=== PATIENT | female | born 1980 | race Caucasian/White ===

== ENCOUNTER 2020-02-21 20:34 | Inpatient (IN) | payer BC ==
[2020-02-21 21:23] LABS: #Lymphocytes 1.5 thou/uL (1.20-3.40); #Monocytes 0.3 thou/uL (0.11-0.59); #Neutrophils 4.7 thou/uL (1.40-6.50); %Basophils 0.5 % (0.0-1.0); %Eosinophils 0.4 % (0.0-10.0); %Lymphocytes 22.2 % (21.0-51.0); %Monocytes 5.2 % (0.0-10.0); %Neutrophils 71.6 % (42.0-75.0); Hemoglobin 14.5 g/dL (12.0-16.0); Mean Corpuscular HGB CONC 34.4 g/dL (32.0-36.0); Mean Corpuscular Hemoglobin 32.2 pg (27.0-31.0); Mean Corpuscular Volume 93.5 fL (78.0-98.0); Platelet Count 166 thou/uL (130-400); Red Blood Cell (RBC) Count 4.49 mill/uL (4.20-5.40); White Blood Cell (WBC) Count 6.6 thou/uL (4.8-10.8)
[2020-02-21] MEDS ORDERED: Lorazepam 1 MG TAB ONE (21:28)
--- NOTE | 2020-02-21 21:36 | RAD ---
Portable frontal chest radiograph: 02/21/2020 COMPARISON: 02/15/2020 HISTORY: Syncope, chest pain FINDINGS: Stable pulmonary hyperinflation. No pneumothorax or pleural fluid. No focal consolidation o r alveolar edema. Impression: No significant interval change.
[2020-02-21 21:53] LABS: ALT (SGPT) 9 U/L (8-55); AST (SGOT) 10 U/L (5-34); Alkaline Phosphatase 74 U/L (40-110); Anion Gap 16 mmol/L (10-20); BUN (Urea Nitrogen) 13 mg/dL (7.0-18.7); Bilirubin, Total 0.4 mg/dL (0.2-1.2); Calc. Creatinine Clearance 0 mL/min (70-130); Carbon Dioxide 20 mmol/L (22-29); Chloride 106 mmol/L (98-107); Estimated GFR-MDRD 81; Globulin 2.7 g/dL (2.4-3.5); Glucose 94 mg/dL (70-105); Magnesium 2.1 mg/dL (1.6-2.6); Potassium 3.8 mmol/L (3.5-5.1); Protein, Total 6.7 g/dL (6.0-8.3); Sodium 138 mmol/L (136-145)
[2020-02-21] MEDS ORDERED: Calcium Carbonate 500 MG ChewTAB PO PRN (23:43)
[2020-02-21] MEDS ORDERED: Ondansetron ODT 4 MG TAB PO PRN (23:43)
[2020-02-21] MEDS ORDERED: Acetaminophen 650 MG Suppository PR PRN (23:43)
[2020-02-21] MEDS ORDERED: HYDROcodone/Acetaminophen 5/325 mg Tablet PO PRN (23:43)
[2020-02-21] MEDS ORDERED: Acetaminophen 325 MG TAB PO PRN (23:43)
--- NOTE | 2020-02-21 23:53 | PDOC.HHP ---
Hospitalist HPI - History of Present Illness syncope History of Present Illness: Case of an 39y/o female with pmhx of hashimotos disease and celiac disease who comes to hospital due to episodes of syncope. patient states that since two weeks ago she has had recurrent episodes of palpitations with a HR of between 120-160s with associated syncope. she states that when she wakes up she has chest pain and tingling sensation on her arms. Refers recently her assistant hairstylist discontinued her levothyroxine due to these episodes of syncope and tachycardia. patient also complains of recent dysuria and generalize weakness. Hospitalist ROS - Review of Systems All other systems reviewed; all pertinent +/- noted in HPI/Subj Hospitalist History - Past Surgical History Past Surgical History: reports: no pertinent history - Family History Family History: reports: no pertinent history - Social History Smoking Status: Current every day smoker Alcohol: reports: None Drugs: reports: none - Exam General Appearance: NAD, awake alert General - other findings: frail appearing Eye: PERRL, anicteric sclera ENT: normocephalic atraumatic, no oropharyngeal lesions, moist mucosa Neck: supple, symmetric, no JVD, no thyromegaly Heart: RRR, no murmur, no gallops, no rubs Respiratory: CTAB, no wheezes, no rales, no ronchi Gastrointestinal: soft, non-tender, non-distended, normal bowel sounds Extremities: no cyanosis, no clubbing, no edema Skin: normal turgor, no lesions, no rashes Neurological: cranial nerve grossly intact, normal sensation to touch, no weakness Musculoskeletal: normal tone, normal strength, no muscle wasting Psychiatric: normal affect, normal behavior, A&O x 3 Hospitalist Results - Labs Result Diagrams: 02/21/20 21:13 02/21/20 21:13 Lab results: WBC 6.6 thou/uL (4.8-10.8) 02/21/20 21:13 Hgb 14.5 g/dL (12.0-16.0) 02/21/20 21:13 Hct 42.0 % (36.0-47.0) 02/21/20 21:13 MCV 93.5 fL (78.0-98.0) 02/21/20 21:13 Plt Count 166 thou/uL (130-400) 02/21/20 21:13 Neutrophils % 71.6 % (42.0-75.0) 02/21/20 21:13 Sodium 138 mmol/L (136-145) 02/21/20 21:13 Potassium 3.8 mmol/L (3.5-5.1) 02/21/20 21:13 Chloride 106 mmol/L (98-107) 02/21/20 21:13 Carbon Dioxide 20 mmol/L (22-29) L 02/21/20 21:13 BUN 13 mg/dL (7.0-18.7) 02/21/20 21:13 Creatinine 0.79 mg/dL (0.6-1.1) 02/21/20 21:13 Glucose 94 mg/dL (70-105) 02/21/20 21:13 Calcium 9.0 mg/dL (7.8-10.44) 02/21/20 21:13 Total Bilirubin 0.4 mg/dL (0.2-1.2) 02/21/20 21:13 AST 10 U/L (5-34) 02/21/20 21:13 ALT 9 U/L (8-55) 02/21/20 21:13 Alkaline Phosphatase 74 U/L (40-110) 02/21/20 21:13 Troponin I Less than 0.010 ng/mL (< 0.028) 02/21/20 21:13 B-Natriuretic Peptide Less than 10.0 pg/mL (0-100) 02/21/20 21:13 Serum Total Protein 6.7 g/dL (6.0-8.3) 02/21/20 21:13 Albumin 4.0 g/dL (3.5-5.0) 02/21/20 21:13 Hospitalist H&P A/P - Problem (1) Syncope Code(s): R55 - SYNCOPE AND COLLAPSE Status: Acute (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 THYROIDITIS Status: Acute (3) Smoker Code(s): F17.200 - NICOTINE DEPENDENCE, UNSPECIFIED, UNCOMPLICATED Status: Acute (4) Celiac disease Code(s): K90.0 - CELIAC DISEASE Status: Acute - Plan Plan: Case of an 39y/o female with the stated pmhx who presents wit an episodes of syncope syncope - ekg sinus tachycardia un 107 - initial troponin negative will trend - cardiac monitoring - tsh normal will check free t3+t4 - telemetry monitoring - cxr with hyperinflammation but normal appearing heart - will get 2d echo - normal 02 sats, adequate hg, normal bnp - r/o infection with u/a, cxr clean hashimotos - check free t3 + t4 smoker - advied to quit
[2020-02-22 02:02] LABS: Troponin I Less than 0.010 ng/mL (< 0.028)
[2020-02-22 05:10] LABS: Albumin 3.5 g/dL (3.5-5.0); Anion Gap 13 mmol/L (10-20); BUN (Urea Nitrogen) 13 mg/dL (7.0-18.7); Bilirubin, Total 0.7 mg/dL (0.2-1.2); Calc. Creatinine Clearance 101 mL/min (70-130); Calcium 8.4 mg/dL (7.8-10.44); Carbon Dioxide 21 mmol/L (22-29); Chloride 108 mmol/L (98-107); Estimated GFR-MDRD Greater than 90; Glucose 88 mg/dL (70-105); Potassium 3.4 mmol/L (3.5-5.1); Protein, Total 5.8 g/dL (6.0-8.3); Sodium 139 mmol/L (136-145)
[2020-02-22 05:11] LABS: ALT (SGPT) Less than 7 U/L (8-55); AST (SGOT) 10 U/L (5-34); Alkaline Phosphatase 66 U/L (40-110); Globulin 2.3 g/dL (2.4-3.5); Magnesium 1.9 mg/dL (1.6-2.6)
[2020-02-22 05:14] LABS: Troponin I 0.018 ng/mL (< 0.028)
[2020-02-22 06:41] LABS: Free T4 (Free Thyroxine) 1.07 ng/dL (0.70-1.48)
[2020-02-22] MEDS: Enoxaparin Sodium 40 MG/0.4 ML SYRINGE SC SCH (09:06)
[2020-02-22 09:11] LABS: SARS-CoV-2 MS2 Positive; SARS-CoV-2 N Gene Negative; SARS-CoV-2 S Gene Negative; SARS-CoV-2 by NAA Not Detected (NotDetected); SARS-CoV-2 orf1ab Negative
[2020-02-22 09:54] LABS: Bacteria/HPF None Seen HPF (None Seen); Bilirubin Negative (Negative); Blood, Urine Negative (Negative); Clarity Clear (Clear); Glucose, Urine (Dipstick) Normal (Negative); Ketone, Urine 10 mg/dL (Negative); Leukocyte 25 Leu/uL (Negative); Nitrite Negative (Negative); Protein, Urine (Dipstick) Negative (Neg-Trace); RBC/HPF 0-3 HPF (0-3); Specific Gravity, Urine 1.021 (1.002-1.036); Squamous Epithelial 0-3 HPF (0-3); Urobilinogen Normal mg/dL (Less than 2); pH, Urine 5.5 (5.0-9.0)
[2020-02-22 09:55] LABS: Urine Culture Reflex Yes Yes
[2020-02-22] MEDS ORDERED: Electrolyte Replacement Protoc 1 EACH EACH FS SCH (10:15)
[2020-02-22] MEDS ORDERED: Magnesium 2 GM/50 ML 2 GM in Premix Bag 1 BAG IVPB SCH (10:30)
[2020-02-22] MEDS ORDERED: Potassium Chloride 20 MEQ TAB PO SCH (10:30)
[2020-02-22] MEDS: Ondansetron PF 4 MG/2 ML Vial IVP PRN (12:10)
[2020-02-22] MEDS ORDERED: Cosyntropin 250 MCG VIAL SLOW IVP SCH (12:45)
--- NOTE | 2020-02-22 14:09 | MRI ---
MRI OF THE BRAIN WITHOUT CONTRAST: 02/22/20 INDICATIONS: Headache, syncope. No comparison. Motion artifact degrade the sequences. FINDINGS: The ventricles have normal size and position. No evidence of restricted diffusion. No evidence of mas s or edema. No evidence of white matter abnormality. No evidence of hemorrhage. Intracranial internal carotid arteries, cerebral arteries and dural venous sinuses show flow voids. T he paranasal sinuses and mastoids are clear. Orbits unremarkable. Pituitary appears normal. IMPRESSION: Unremarkable MRI of the brain. POS: AH
[2020-02-22] MEDS: Dextrose 5 % And 0.9 % NaCl 1,000 ML IV SCH (16:52)
[2020-02-22] MEDS ORDERED: diphenhydrAMINE 50 MG/ML VIAL ONE (17:02)
--- NOTE | 2020-02-22 17:16 | CON ---
NEUROLOGY CONSULTATION DATE OF CONSULTATION: 02/22/2020 REASON FOR CONSULTATION: Syncope. HISTORY OF PRESENT ILLNESS: Ms. Alvares is a 39-year-old female with history significant for Jo Ann's disease and celiac disease, who presented to the hospital with persistent episodes of dizziness with associated syncope. The episode started 2 weeks ago. She woke up in the morning and has palpitations with her heart rate between 120 to 160s and she feels extremely dizzy and feeling of passing out. She also complained of generalized weakness and chest pain. The patient denies any focal numbness, focal paresthesias, double vision, blurred vision, loss of vision, or any seizure-like activity associated with the episode. REVIEW OF SYSTEMS: All systems reviewed and were negative except the pertinent positives and negatives mentioned in HPI. PAST SURGICAL HISTORY: No significant past surgical history. FAMILY HISTORY: No significant family history. SOCIAL HISTORY: The patient denies smoking, alcohol, or illegal drug use. ALLERGIES: Iodine, Iodine containing products and cephalexin PHYSICAL EXAMINATION: VITAL SIGNS: Blood pressure 127/66, temperature 98.7, pulse 89. General Appearance: NAD, awake alert Eye: PERRL, anicteric sclera ENT: normocephalic atraumatic, no oropharyngeal lesions, moist mucosa Neck: supple, symmetric, no JVD, no thyromegaly Heart: RRR, no murmur, no gallops, no rubs Respiratory: CTAB, no wheezes, no rales, no ronchi Gastrointestinal: soft, non-tender, non-distended, normal bowel sounds Extremities: no cyanosis, no clubbing, no edema Skin: normal turgor, no lesions, no rashes Neurological: Mental status; the patient is alert and oriented to person, place, and time. Recent and remote memory, clear. Speech is clear. Motor; muscle tone and bulk are normal. Strength 5/5 bilaterally. Sensory intact. Cerebellar, finger-nose testing intact. Cranial nerves 2 through 12 intact. Gait deferred due to the patient's safety reason. DATA REVIEWED: I reviewed the labs, which were essentially unremarkable. MRI of the brain did not reveal acute intracranial pathology. WBC 6.6 thou/uL (4.8-10.8) 02/21/20 21:13 Hgb 14.5 g/dL (12.0-16.0) 02/21/20 21:13 Hct 42.0 % (36.0-47.0) 02/21/20 21:13 MCV 93.5 fL (78.0-98.0) 02/21/20 21:13 Plt Count 166 thou/uL (130-400) 02/21/20 21:13 Neutrophils % 71.6 % (42.0-75.0) 02/21/20 21:13 Sodium 138 mmol/L (136-145) 02/21/20 21:13 Potassium 3.8 mmol/L (3.5-5.1) 02/21/20 21:13 Chloride 106 mmol/L (98-107) 02/21/20 21:13 Carbon Dioxide 20 mmol/L (22-29) L 02/21/20 21:13 BUN 13 mg/dL (7.0-18.7) 02/21/20 21:13 Creatinine 0.79 mg/dL (0.6-1.1) 02/21/20 21:13 Glucose 94 mg/dL (70-105) 02/21/20 21:13 Calcium 9.0 mg/dL (7.8-10.44) 02/21/20 21:13 Total Bilirubin 0.4 mg/dL (0.2-1.2) 02/21/20 21:13 AST 10 U/L (5-34) 02/21/20 21:13 ALT 9 U/L (8-55) 02/21/20 21:13 Alkaline Phosphatase 74 U/L (40-110) 02/21/20 21:13 Troponin I Less than 0.010 ng/mL (< 0.028) 02/21/20 21:13 B-Natriuretic Peptide Less than 10.0 pg/mL (0-100) 02/21/20 21:13 Serum Total Protein 6.7 g/dL (6.0-8.3) 02/21/20 21:13 Albumin 4.0 g/dL (3.5-5.0) 02/21/20 21:13 ASSESSMENT AND PLAN: (1) Syncope Code(s): R55 - SYNCOPE AND COLLAPSE Status: Acute (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 Giorgio Tena is a 39-year-old female who presented with an episode of palpitation, dizziness, and episodes of syncope. This is on and off since the last 2 weeks. MRI of the brain reviewed, which was negative for acute intracranial pathology. The patient cannot have intravenous dye because of history of anaphylaxis. Consider carotid Dopplers to rule out hemodynamically significant stenosis. 2D echo reviewed, which showed normal ejection fraction with no thrombus or PFO. Continue telemetry and Cardiology input regarding syncope. Consider ultrasound of the thyroid since the patient complained of pressure in the neck. Neuro checks every 4 hours. Continue medical management per primary team per primary team. Continue pain control. PT/OT. We will continue to follow. Thank you for the consult. Job ID: [id number] MTDD
[2020-02-22] MEDS ORDERED: hydrOXYzine 25 MG TAB PO PRN (18:04)
--- NOTE | 2020-02-22 18:05 | PDOC.HOSPP ---
- Subjective Encounter Date: 02/22/20 Subjective: Was seen and examined in bed. She was generally cheerful and distress. She complained of intermittent headaches and palpitations with syncope is anytime she tries to get up. She was admitted overnight - Objective Vital Signs & Weight: Vital Signs (12 hours) Temp Pulse Resp BP Pulse Ox 02/22/20 12:00 98.7 F 89 17 121/66 96 02/22/20 08:00 98.3 F 94 17 110/61 99 Weight Weight 128 lb 14.4 oz I&O: 02/21/20 02/22/20 02/23/20 06:59 06:59 06:59 Intake Total 240 Balance 240 Result Diagrams: 02/21/20 21:13 02/22/20 04:21 Additional Labs: Accuchecks 02/22/20 02/22/20 02/22/20 17:00 14:33 12:21 POC Glucose 89 76 72 Hospitalist ROS - Medication Medications: Active Medications Generic Name Dose Route Start Last Admin Trade Name Freq PRN Reason Stop Dose Admin Cosyntropin 250 mcg 02/22/20 12:45 02/22/20 16:51 Cosyntropin 250 Mcg Vial SLOW IVP 250 mcg WILLCALL RADU Administration Enoxaparin Sodium 40 mg 02/22/20 09:00 02/22/20 09:06 Enoxaparin Sodium 40 Mg/0.4 Ml Syringe SC 40 mg 0900 RADU Administration Dextrose/Sodium Chloride 1,000 mls @ 75 mls/hr 02/22/20 16:30 02/22/20 16:52 D5 0.9% Ns IV 1,000 mls .[id number] RADU Administration Ondansetron HCl 4 mg 02/21/20 23:43 02/22/20 12:10 Ondansetron Pf 4 Mg/2 Ml Vial IVP 4 mg Q6H PRN Administration Nausea/Vomiting - Exam General Appearance: awake alert General - other findings: Generally anxious. Neck: supple, no JVD, no thyromegaly, no lymphadenopathy, no carotid bruit Heart: RRR, no murmur, no gallops, no rubs Respiratory: CTAB, no wheezes, no rales, no ronchi Gastrointestinal: soft, non-tender, non-distended, normal bowel sounds Extremities: no cyanosis, no clubbing, no edema Neurological: cranial nerve grossly intact, no focal deficits Psychiatric: normal affect, A&O x 3 Hosp A/P - Plan This is a 39-year-old female patient with a history of autoimmune thyroiditis and celiac disease presents with recurrent syncopal events intermittent palpitations and headaches for the past couple of weeks. Recurrent syncopal events. Unclear etiology at this point. Possibilities include intracerebral lesion, carotid disease cardiac and endocrinopathy and cardiac Initial MRI of the brain shows no acute or chronic events. echocardiogram noncontributory so far, no concerning EKG changes, orthostatics negative. Unable to do CTA due to allergy, we will do Doppler ultrasound of the carotids Adrenal assessmentattempted cosyntropin stimulation test resulted in extreme discomfort and tachycardia and test was discontinued. We will check cortisol in a.m., plasma metanephrines ordered. Renal ultrasound scan for assessment of adrenals Monitor on telemetry Neurology consulted Intermittent headaches Has history of migraines however described recent headaches as different in character. MRI brain negative so far Phenothiazine assessment Neurology consulted Neck tightness Given history of Jo Ann's thyroiditis we will do a Doppler ultrasound scan Thyroid function is within normal limits at the moment Anxiety. She is on as needed Atarax at home We will continue VT prophylaxisLovenox CODE STATUSfull code
--- NOTE | 2020-02-22 18:19 | PDOC.BPN ---
- Brief Progress Note Encounter Date: 02/22/20 Patient had a brief periof of tachycardia headaches and feeling of unwellness after initial injection of cosyntropin for cosyntropin stimulation test. Injection was discontinued NARCISA reddy was called. Patient was given Benadryl which eventually calmed her down. EKG shows sinus tachycardiastat labs were collected We will continue close monitoring on telemetry.
[2020-02-22 20:29] LABS: Medtox Reader # READER 4
[2020-02-22 20:30] LABS: Amphetamine Not Detected (NotDetected); Barbiturates Screen Not Detected (NotDetected); Benzodiazepine Screen Detected (NotDetected); Cocaine Metabolite Screen Not Detected (NotDetected); Medtox Control Line Valid? VALID (VALID); Methadone Not Detected (NotDetected); Methamphetamine Not Detected (NotDetected); Opiate Screen Not Detected (NotDetected); Oxycodone Screen Not Detected (NotDetected); Phencyclidine (PCP) Not Detected (NotDetected); THC/Cannabinoid Screen Not Detected (NotDetected); Tricyclic Screen Not Detected (NotDetected)
[2020-02-22] MEDS ORDERED: Temazepam 15 MG CAP PO PRN (22:53)
--- NOTE | 2020-02-22 23:33 | ULT ---
Thyroid ultrasound: 02/22/2020 COMPARISON: None HISTORY: Autoimmune thyroiditis, neck tightness TECHNIQUE: Multiplanar grayscale sonographic imaging of the thyroid gland obtained FINDINGS: The isthmus measures 2 mm in AP dimension. The left lobe measures 1.4 x 4.3 x 1.2 cm in the right lobe measures 1.5 x 4.5 x 1.3 cm. There is a tiny nodule in the lateral left lobe measuring 1-2 mm. There is a tiny hypoechoic nodule w ithin the mid right lobe measuring 4 x 3 mm. IMPRESSION: Grossly unremarkable thyroid ultrasound. No significant thyroid nodule.
--- NOTE | 2020-02-22 23:36 | ULT ---
Carotid arterial Doppler ultrasound: 02/22/2020 COMPARISON: None HISTORY: Severe headaches with syncope TECHNIQUE: Multiplanar grayscale sonographic imaging of the arterial structures of the neck obtained with Doppler interrogation including color flow and spectral analysis FINDINGS: Antegrade blood flow and normal arterial waveforms are documented within the carotid and ve rtebral system bilaterally. Peak systolic velocity (centimeters per second) is as follows: Right CCA 110 Right ICA 109 Right ECA 90 Left CCA 140 Left ICA 84 Left ECA 92 The ICA/CCA ratio is 1.0 on the right and 0.6 on the left IMPRESSION: Mildly elevated velocity within the left common carotid artery correlating with a moderat e degree of stenosis (50-69%). Velocity range for this degree of stenosis is 125-230 cm/s.
[2020-02-23] MEDS: Dextrose 5 % And 0.9 % NaCl 1,000 ML IV SCH ×2 (06:03→19:33)
[2020-02-23] MEDS: Enoxaparin Sodium 40 MG/0.4 ML SYRINGE SC SCH (07:51)
[2020-02-23] MEDS ORDERED: ALPRAZolam 0.5 MG TAB PO SCH (10:15)
--- NOTE | 2020-02-23 13:26 | PDOC.HOSPP ---
- Subjective Encounter Date: 02/23/20 Encounter Time: 10:25 Subjective: c/o fear of tachycardia and passing out if she tries to get up has loss of appetite family at bedside appears very anxious and tearfull, at the same time wants answers to her issues and why its taking so long to find out? - Objective Vital Signs & Weight: Vital Signs (12 hours) Temp Pulse Resp BP Pulse Ox 02/23/20 11:16 98.9 F 72 12 107/68 100 02/23/20 07:45 98.2 F 74 16 115/62 99 02/23/20 04:00 97.9 F 99 16 119/73 99 Weight Weight 128 lb 14.4 oz I&O: 02/22/20 02/23/20 02/24/20 06:59 06:59 06:59 Intake Total 240 1580 Output Total 450 Balance 240 1130 Result Diagrams: 02/21/20 21:13 02/22/20 04:21 Additional Labs: Accuchecks 02/23/20 02/23/20 02/23/20 12:07 10:18 08:09 POC Glucose 101 H 92 78 02/23/20 02/23/20 02/23/20 05:40 01:41 00:01 POC Glucose 105 H 105 H 109 H 02/22/20 02/22/20 02/22/20 22:20 20:02 17:00 POC Glucose 115 H 95 89 02/22/20 14:33 POC Glucose 76 Hospitalist ROS - Medication Medications: Active Medications Generic Name Dose Route Start Last Admin Trade Name Freq PRN Reason Stop Dose Admin Enoxaparin Sodium 40 mg 02/22/20 09:00 02/23/20 07:51 Enoxaparin Sodium 40 Mg/0.4 Ml Syringe SC 40 mg 0900 RADU Administration Hydroxyzine HCl 50 mg 02/22/20 18:04 02/22/20 20:30 Hydroxyzine 25 Mg Tab PO 50 mg Q8H PRN Administration Anxiety Dextrose/Sodium Chloride 1,000 mls @ 75 mls/hr 02/22/20 16:30 02/23/20 06:03 D5 0.9% Ns IV 1,000 mls .[id number] RADU Administration Ondansetron HCl 4 mg 02/21/20 23:43 02/22/20 12:10 Ondansetron Pf 4 Mg/2 Ml Vial IVP 4 mg Q6H PRN Administration Nausea/Vomiting Sodium Chloride 10 ml 02/22/20 21:00 02/23/20 07:50 Flush - Normal Saline 10 Ml Syringe IVF 10 ml Q12HR RADU Administration Temazepam 15 mg 02/22/20 22:53 02/23/20 01:01 Temazepam 15 Mg Cap PO 15 mg HSPRN PRN Administration Insomnia - Exam General Appearance: awake alert Eye: PERRL, anicteric sclera ENT: no oropharyngeal lesions, moist mucosa Neck: supple, no JVD Heart: RRR, no murmur Respiratory: no wheezes, no rales Gastrointestinal: soft, non-tender, non-distended, normal bowel sounds Extremities: no cyanosis, no edema Neurological: cranial nerve grossly intact, no focal deficits Psychiatric: A&O x 3 Psychiatric - other findings: very anxious Hosp A/P (1) Narrow complex tachycardia Code(s): I47.1 - SUPRAVENTRICULAR TACHYCARDIA Status: Suspected (2) Syncope Code(s): R55 - SYNCOPE AND COLLAPSE Status: Suspected (3) Tobacco use Code(s): Z72.0 - TOBACCO USE Status: Chronic (4) Celiac disease Code(s): K90.0 - CELIAC DISEASE Status: Chronic (5) Jo Ann's thyroiditis Code(s): E06.3 - AUTOIMMUNE THYROIDITIS Status: Chronic (6) Dehydration Code(s): E86.0 - DEHYDRATION Status: Acute (7) Anxiety disorder Code(s): F41.9 - ANXIETY DISORDER, UNSPECIFIED Status: Suspected Qualifiers: Anxiety disorder type: generalized anxiety disorder Qualified Code(s): F41.1 - Generalized anxiety disorder - Plan thyroid function tests are normal has normal resting heart rate on tele d/w echo is normal iv hydration, encourage po intake PT eval to help her overcome fear of passing out/tachy etc gluten free diet
--- NOTE | 2020-02-23 13:43 | PDOC.NEUPN ---
- Subjective Encounter Date: 02/23/20 Subjective: She still complains of tachycardia on movement and not feeling well this morning. - Objective Vital Signs & Weight: Vital Signs (12 hours) Temp Pulse Resp BP Pulse Ox 02/23/20 11:16 98.9 F 72 12 107/68 100 02/23/20 07:45 98.2 F 74 16 115/62 99 02/23/20 04:00 97.9 F 99 16 119/73 99 Weight Weight 128 lb 14.4 oz I&O: 02/22/20 02/23/20 02/24/20 06:59 06:59 06:59 Intake Total 240 1580 Output Total 450 Balance 240 1130 Result Diagrams: 02/21/20 21:13 02/22/20 04:21 Additional Labs: Accuchecks 02/23/20 02/23/20 02/23/20 12:07 10:18 08:09 POC Glucose 101 H 92 78 02/23/20 02/23/20 02/23/20 05:40 01:41 00:01 POC Glucose 105 H 105 H 109 H 02/22/20 02/22/20 02/22/20 22:20 20:02 17:00 POC Glucose 115 H 95 89 02/22/20 14:33 POC Glucose 76 Radiology Reviewed by me: Yes EKG Reviewed by me: Yes ROS - Review of Systems Constitutional: denies: fever, chills, sweats, weakness, malaise, other Eyes: denies: pain, vision change, conjunctivae inflammation, eyelid inflammation, redness, other ENT: denies: ear pain, ear discharge, nose pain, nose discharge, nose congestion, mouth pain, mouth swelling, throat pain, throat swelling, other Respiratory: denies: cough, dry, shortness of breath, hemoptysis, SOB with excertion, pleuritic pain, sputum, wheezing, other Cardiovascular: reports: Syncope Gastrointestinal: denies: nausea, vomiting, abdominal pain, diarrhea, constipation, melena, hematochezia, other Genitourinary: denies: dysuria, frequency, incontinence, hematuria, retention, other Musculoskeletal: denies: neck pain, shoulder pain, arm pain, back pain, hand pain, leg pain, foot pain, other Skin: denies: rash, lesions, gavino, bruising, other Neurological: denies: weakness, numbness, incoordination, change in speech, confusion, seizures, other All Systems: All other systems reviewed; all pertinent +/- noted in HPI/Subj - Medication Medications: Active Medications Generic Name Dose Route Start Last Admin Trade Name Freq PRN Reason Stop Dose Admin Enoxaparin Sodium 40 mg 02/22/20 09:00 02/23/20 07:51 Enoxaparin Sodium 40 Mg/0.4 Ml Syringe SC 40 mg 0900 RADU Administration Dextrose/Sodium Chloride 1,000 mls @ 75 mls/hr 02/22/20 16:30 02/23/20 06:03 D5 0.9% Ns IV 1,000 mls .[id number] RADU Administration Ondansetron HCl 4 mg 02/21/20 23:43 02/22/20 12:10 Ondansetron Pf 4 Mg/2 Ml Vial IVP 4 mg Q6H PRN Administration Nausea/Vomiting Sodium Chloride 10 ml 02/22/20 21:00 02/23/20 07:50 Flush - Normal Saline 10 Ml Syringe IVF 10 ml Q12HR RADU Administration Temazepam 15 mg 02/22/20 22:53 02/23/20 01:01 Temazepam 15 Mg Cap PO 15 mg HSPRN PRN Administration Insomnia - Exam General Appearance: awake alert Eye: PERRL ENT: normocephalic atraumatic Neck: supple Respiratory: CTAB Cardiovascular: RRR Gastrointestinal: soft Extremities: no cyanosis Skin: normal turgor Neurological: CN's grossly intact, normal sensation to touch, no focal deficits, no new deficit Musculoskeletal: generalized weakness PSYCH: A&O x 3, oriented to person, oriented to place, oriented to time (Extremely anxious) Results - Labs Result Diagrams: 02/21/20 21:13 02/22/20 04:21 Lab results: WBC 6.6 thou/uL (4.8-10.8) 02/21/20 21:13 Hgb 14.5 g/dL (12.0-16.0) 02/21/20 21:13 Hct 42.0 % (36.0-47.0) 02/21/20 21:13 MCV 93.5 fL (78.0-98.0) 02/21/20 21:13 Plt Count 166 thou/uL (130-400) 02/21/20 21:13 Neutrophils % 71.6 % (42.0-75.0) 02/21/20 21:13 Sodium 139 mmol/L (136-145) 02/22/20 04:21 Potassium 3.4 mmol/L (3.5-5.1) L 02/22/20 04:21 Chloride 108 mmol/L (98-107) H 02/22/20 04:21 Carbon Dioxide 21 mmol/L (22-29) L 02/22/20 04:21 BUN 13 mg/dL (7.0-18.7) 02/22/20 04:21 Creatinine 0.69 mg/dL (0.6-1.1) 02/22/20 04:21 Glucose 88 mg/dL (70-105) 02/22/20 04:21 Calcium 8.4 mg/dL (7.8-10.44) 02/22/20 04:21 Total Bilirubin 0.7 mg/dL (0.2-1.2) 02/22/20 04:21 AST 10 U/L (5-34) 02/22/20 04:21 ALT Less than 7 U/L (8-55) L 02/22/20 04:21 Alkaline Phosphatase 66 U/L (40-110) 02/22/20 04:21 Troponin I 0.018 ng/mL (< 0.028) 02/22/20 04:21 B-Natriuretic Peptide Less than 10.0 pg/mL (0-100) 02/21/20 21:13 Serum Total Protein 5.8 g/dL (6.0-8.3) L 02/22/20 04:21 Albumin 3.5 g/dL (3.5-5.0) 02/22/20 04:21 Urine Ketones 10 mg/dL (Negative) A 02/22/20 07:55 Urine Blood Negative (Negative) 02/22/20 07:55 Urine Nitrite Negative (Negative) 02/22/20 07:55 Ur Leukocyte Esterase 25 Anna/uL (Negative) A 02/22/20 07:55 Urine RBC 0-3 HPF (0-3) 02/22/20 07:55 Urine WBC 7-10 HPF (0-3) A 02/22/20 07:55 Ur Squamous Epith Cells 0-3 HPF (0-3) 02/22/20 07:55 Urine Bacteria None Seen HPF (None Seen) 02/22/20 07:55 PN A/P (1) Syncope Code(s): R55 - SYNCOPE AND COLLAPSE Status: Suspected (2) Dehydration Code(s): E86.0 - DEHYDRATION Status: Acute (3) Celiac disease Code(s): K90.0 - CELIAC DISEASE Status: Chronic (4) Jo Ann's thyroiditis Code(s): E06.3 - AUTOIMMUNE THYROIDITIS Status: Chronic (5) Tobacco use Code(s): Z72.0 - TOBACCO USE Status: Chronic (6) Anxiety disorder Code(s): F41.9 - ANXIETY DISORDER, UNSPECIFIED Status: Suspected Qualifiers: Anxiety disorder type: generalized anxiety disorder Qualified Code(s): F41.1 - Generalized anxiety disorder (7) Narrow complex tachycardia Code(s): I47.1 - SUPRAVENTRICULAR TACHYCARDIA Status: Suspected - Plan Daily Plan: plan discussed w/ family, PT/OT, DVT proph w/SCDs 39-year-old female consulted for recurrent episodes of syncope and tachycardia rule out intracranial cause for her symptoms. Neurological cause seems less likely based on clinical presentation and the results of the testing. MRI of the brain reviewed which was negative for acute intracranial pathology. Carotid Dopplers showed moderate stenosis in the left common carotid artery. This does not seem correlate with her symptoms since she has no focal deficits prior to these events. However, consider CV surgery input. The patient complain of pressure in the neck so thyroid ultrasound was done which did not reveal any pathology. Continue telemetry. Consider cardiology input for episodes of recurrent syncope. Consider endocrinology work-up as outpatient for systemic symptoms associated with syncope. PT/OT. Plan discussed in detail with the patient and the at bedside.
[2020-02-23] MEDS: ALPRAZolam 0.5 MG TAB PO SCH ×2 (16:01→21:32)
--- NOTE | 2020-02-23 17:30 | CON ---
DATE OF CONSULTATION: HISTORY: This is a 39-year-old white female with history of Jo Ann disease and celiac disease, who comes to the hospital after episodes of syncope over the last 2 weeks. She will have palpitations and she checks her Apple watch and her heart rate is in the 160s to 170s and then she will become extremely weak and at times fall to the ground with syncope. She may have mild chest discomfort with this. She denies any fecal or urine loss. Her states that whenever she has the issues, she is usually awake and alert in 5 to 10 seconds. She was on low-dose levothyroxine-0.025 mg daily. However, this stopped one week ago because of these episodes. PAST MEDICAL HISTORY: She denies any history of hypertension, diabetes, or hypercholesterolemia. 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 OPERATIONS: None. MEDICATIONS: Atarax 50 mg q.8 hours p.r.n. ALLERGIES: CEPHALEXIN. SHE ALSO STATES SHE HAS ANAPHYLACTIC REACTION FROM INTRAVENOUS CONTRAST. SOCIAL HISTORY: She is a smoker. She does not drink. PHYSICAL EXAMINATION: VITAL SIGNS: Blood pressure 118/66, pulse of 75. HEENT: PERRL. NECK: Supple. CHEST: Clear. CARDIAC: S1, S2 normal without any S3, S4, or murmurs. ABDOMEN: Normal bowel sounds without tenderness. EXTREMITIES: Revealed no edema. NEUROLOGIC: Grossly intact. LABORATORY DATA: EKG reveals sinus tachycardia with a rate of 107 per minute and poor R-wave progression. Echocardiogram revealed ejection fraction of 55% to 60% with mild mitral regurgitation and mild tricuspid regurgitation. CBC is unremarkable. Free T4, free T3 and TSH were normal. Cortisols normal. Sodium 139, potassium 3.4, chloride 108, carbon dioxide 21, BUN 13, creatinine 0.69. IMPRESSION: 1. Episode of syncope of uncertain etiology. On studying her rhythm strip with since admission, she did have one episode of heart rate of 150 per minute. In evaluating the onset of this, it appears that it is probably sinus tachycardia with gradual increase in her heart rate and then gradual slowing of her heart rate. She also has an episode of heart rate in the 40s. This could also represent postural orthostatic tachycardia syndrome. 2. History of Jo Ann thyroiditis. 3. Iodine allergy. 4. Celiac disease. RECOMMENDATIONS: The patient will continue to be monitored. It is recommended that Electrophysiology consultation need to be obtained. However, I am not certain this could be available until February 26 after the hols. She certainly may have inappropriate sinus tachycardia or POTS, although I do think that there is a lot of anxiety overlay. Will check orthostatic BP and pulse. Increase salt and fluid intake. Job ID: [id number] MTDD
[2020-02-23] MEDS: Metoprolol Tartrate 25 MG TAB PO SCH (21:32)
[2020-02-24] MEDS: Metoprolol Tartrate 25 MG TAB PO SCH ×2 (08:43→22:20)
[2020-02-24] MEDS: ALPRAZolam 0.5 MG TAB PO SCH ×3 (08:43→22:20)
[2020-02-24] MEDS: Dextrose 5 % And 0.9 % NaCl 1,000 ML IV SCH (08:44)
[2020-02-24] MEDS: Enoxaparin Sodium 40 MG/0.4 ML SYRINGE SC SCH (08:44)
--- NOTE | 2020-02-24 15:41 | PDOC.HOSPP ---
- Subjective Encounter Date: 02/24/20 - Objective Vital Signs & Weight: Vital Signs (12 hours) Temp Pulse Pulse Pulse Pulse Pulse Pulse 02/24/20 15:28 98.7 F 61 02/24/20 11:28 97.7 F 54 L 02/24/20 09:41 72 83 88 77 63 02/24/20 07:42 98.7 F 67 02/24/20 07:17 02/24/20 04:00 98.2 F 65 Resp BP BP BP BP BP BP 02/24/20 15:28 16 113/70 02/24/20 11:28 18 99/56 L 02/24/20 09:41 111/64 117/73 118/75 120/73 118/58 L 02/24/20 07:42 16 02/24/20 07:17 02/24/20 04:00 20 93/50 L BP BP BP Pulse Ox 02/24/20 15:28 100 02/24/20 11:28 100 02/24/20 09:41 02/24/20 07:42 99/54 L 100 02/24/20 07:17 119/68 121/79 117/66 02/24/20 04:00 100 Weight Weight 128 lb 14.4 oz I&O: 02/23/20 02/24/20 02/25/20 06:59 06:59 06:59 Intake Total 1580 1920 Output Total 450 750 Balance 1130 1170 Result Diagrams: 02/21/20 21:13 02/22/20 04:21 Additional Labs: Accuchecks 02/24/20 02/24/20 02/24/20 14:21 10:08 06:05 POC Glucose 96 81 76 02/24/20 02/23/20 02/23/20 05:05 23:33 18:22 POC Glucose 86 98 82 Hospitalist ROS - Medication Medications: Active Medications Generic Name Dose Route Start Last Admin Trade Name Freq PRN Reason Stop Dose Admin Alprazolam 0.5 mg 02/23/20 15:00 02/24/20 08:43 Alprazolam 0.5 Mg Tab PO 0.5 mg TID RADU Administration Enoxaparin Sodium 40 mg 02/22/20 09:00 02/24/20 08:44 Enoxaparin Sodium 40 Mg/0.4 Ml Syringe SC 40 mg 0900 RADU Administration Metoprolol Tartrate 25 mg 02/23/20 21:00 02/24/20 08:43 Metoprolol Tartrate 25 Mg Tab PO 25 mg BID RADU Administration Ondansetron HCl 4 mg 02/21/20 23:43 02/22/20 12:10 Ondansetron Pf 4 Mg/2 Ml Vial IVP 4 mg Q6H PRN Administration Nausea/Vomiting Sodium Chloride 10 ml 02/22/20 21:00 02/24/20 08:51 Flush - Normal Saline 10 Ml Syringe IVF Not Given Q12HR RADU Temazepam 15 mg 02/22/20 22:53 02/23/20 01:01 Temazepam 15 Mg Cap PO 15 mg HSPRN PRN Administration Insomnia - Exam General Appearance: awake alert ENT: normocephalic atraumatic Neck: supple, no JVD Heart: RRR Respiratory: normal chest expansion, no tachypnea Extremities: no cyanosis, no clubbing Hosp A/P (1) Hypotension Status: Acute (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 THYROIDITIS Status: Chronic (3) Syncope Code(s): R55 - SYNCOPE AND COLLAPSE Status: Suspected - Plan The patient's tachycardia seems to have improved with management of anxiety with Xanax in addition to treating her with metoprolol. She is reporting increased heart rate when she tries to stand up associated with dizziness. Her blood pressure has been marginal. We will continue IV fluids and see if improving her blood pressure will lead to resolution of her symptoms. If her symptoms remain persistent and the likelihood for orthostatic sinus tachycardia syndrome remains high, we will await EP evaluation on Thursday.
[2020-02-24] MEDS: Sodium Chloride 0.9% 1,000 ML IV SCH (16:29)
[2020-02-25] MEDS: Sodium Chloride 0.9% 1,000 ML IV SCH ×2 (04:19→18:26)
[2020-02-25 05:16] LABS: #Eosinphils 0.1 thou/uL (0.0-0.7); #Lymphocytes 1.7 thou/uL (1.20-3.40); #Monocytes 0.3 thou/uL (0.11-0.59); #Neutrophils 1.9 thou/uL (1.40-6.50); %Basophils 0.6 % (0.0-1.0); %Lymphocytes 41.3 % (21.0-51.0); %Monocytes 8.2 % (0.0-10.0); %Neutrophils 47.9 % (42.0-75.0); Hemoglobin 13.1 g/dL (12.0-16.0); Mean Corpuscular HGB CONC 34.1 g/dL (32.0-36.0); Mean Corpuscular Volume 93.8 fL (78.0-98.0); Mean Platelet Volume 8.7 fL (7.4-10.4); Platelet Count 141 thou/uL (130-400); RBC Distribution Width 10.7 % (11.5-14.5); Red Blood Cell (RBC) Count 4.08 mill/uL (4.20-5.40)
[2020-02-25 05:45] LABS: Anion Gap 13 mmol/L (10-20); BUN (Urea Nitrogen) 9 mg/dL (7.0-18.7); Calc. Creatinine Clearance 96 mL/min (70-130); Calcium 8.6 mg/dL (7.8-10.44); Carbon Dioxide 23 mmol/L (22-29); Chloride 107 mmol/L (98-107); Estimated GFR-MDRD 89; Glucose 90 mg/dL (70-105); Potassium 3.7 mmol/L (3.5-5.1); Sodium 139 mmol/L (136-145)
[2020-02-25] MEDS: Metoprolol Tartrate 25 MG TAB PO SCH ×2 (09:51→20:34)
[2020-02-25] MEDS: ALPRAZolam 0.5 MG TAB PO SCH ×3 (09:51→20:34)
[2020-02-25] MEDS: Enoxaparin Sodium 40 MG/0.4 ML SYRINGE SC SCH (09:51)
[2020-02-25] MEDS ORDERED: Sodium Chloride 0.9% 500 ML IV SCH (10:00)
[2020-02-25] MEDS ORDERED: Metoprolol Tartrate 25 MG TAB PO SCH (10:00)
--- NOTE | 2020-02-25 14:12 | PDOC.HOSPP ---
- Subjective Encounter Date: 02/25/20 - Objective Vital Signs & Weight: Vital Signs (12 hours) Temp Pulse Resp BP BP BP BP 02/25/20 12:45 97.7 F 60 16 122/75 02/25/20 08:00 97.9 F 54 L 16 96/51 L 02/25/20 04:00 98.2 F 61 14 107/75 112/69 98/52 L Pulse Ox 02/25/20 12:45 100 02/25/20 08:00 99 02/25/20 04:00 97 Weight Weight 129 lb 6.4 oz I&O: 02/24/20 02/25/20 02/26/20 06:59 06:59 06:59 Intake Total 1920 2090 Output Total 750 200 Balance 1170 1890 Result Diagrams: 02/25/20 04:27 02/25/20 04:27 Additional Labs: Accuchecks 02/25/20 02/24/20 02/24/20 11:01 20:46 18:11 POC Glucose 82 73 129 H 02/24/20 02/24/20 16:04 14:21 POC Glucose 80 96 Hospitalist ROS - Medication Medications: Active Medications Generic Name Dose Route Start Last Admin Trade Name Freq PRN Reason Stop Dose Admin Alprazolam 0.5 mg 02/23/20 15:00 02/25/20 09:51 Alprazolam 0.5 Mg Tab PO 0.5 mg TID RADU Administration Enoxaparin Sodium 40 mg 02/22/20 09:00 02/25/20 09:51 Enoxaparin Sodium 40 Mg/0.4 Ml Syringe SC 40 mg 0900 RADU Administration Sodium Chloride 1,000 mls @ 75 mls/hr 02/24/20 15:45 02/25/20 04:19 Normal Saline 0.9% IV 1,000 mls .[id number] RADU Administration Ondansetron HCl 4 mg 02/21/20 23:43 02/22/20 12:10 Ondansetron Pf 4 Mg/2 Ml Vial IVP 4 mg Q6H PRN Administration Nausea/Vomiting Sodium Chloride 10 ml 02/22/20 21:00 02/25/20 10:29 Flush - Normal Saline 10 Ml Syringe IVF Not Given Q12HR RADU Temazepam 15 mg 02/22/20 22:53 02/23/20 01:01 Temazepam 15 Mg Cap PO 15 mg HSPRN PRN Administration Insomnia - Exam General Appearance: awake alert ENT: normocephalic atraumatic Neck: supple, no JVD Heart: RRR Respiratory: no tachypnea Extremities: no cyanosis Neurological: cranial nerve grossly intact Hosp A/P (1) Hypotension Status: Acute (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 THYROIDITIS Status: Chronic (3) Syncope Code(s): R55 - SYNCOPE AND COLLAPSE Status: Suspected - Plan 02/23: The patient's tachycardia seems to have improved with management of anxiety with Xanax in addition to treating her with metoprolol. She is reporting increased heart rate when she tries to stand up associated with dizziness. Her blood pressure has been marginal. We will continue IV fluids and see if improving her blood pressure will lead to resolution of her symptoms. If her symptoms remain persistent and the likelihood for orthostatic sinus tachycardia syndrome remains high, we will await EP evaluation on Thursday. 02/24: The patient remains with orthostatic hypotension. She received a bolus of NS today. Started midodrine 5 mg p.o. 3 times daily. Metoprolol titrate dose to 12.5 due to bradycardia. Anxiety is still present despite Xanax. Start low-dose paroxetine.
[2020-02-25] MEDS: Midodrine HCl 5 MG TAB PO SCH ×2 (15:35→20:33)
[2020-02-26 04:48] LABS: #Eosinphils 0.1 thou/uL (0.0-0.7); #Lymphocytes 1.6 thou/uL (1.20-3.40); #Monocytes 0.3 thou/uL (0.11-0.59); %Basophils 0.6 % (0.0-1.0); %Eosinophils 2.2 % (0.0-10.0); %Lymphocytes 39.5 % (21.0-51.0); %Monocytes 7.4 % (0.0-10.0); %Neutrophils 50.3 % (42.0-75.0); Hemoglobin 12.3 g/dL (12.0-16.0); Mean Corpuscular Hemoglobin 32.1 pg (27.0-31.0); Mean Corpuscular Volume 94.4 fL (78.0-98.0); Mean Platelet Volume 8.8 fL (7.4-10.4); Platelet Count 135 thou/uL (130-400); RBC Distribution Width 10.8 % (11.5-14.5); Red Blood Cell (RBC) Count 3.82 mill/uL (4.20-5.40)
[2020-02-26 05:08] LABS: Anion Gap 12 mmol/L (10-20); BUN (Urea Nitrogen) 9 mg/dL (7.0-18.7); Calc. Creatinine Clearance 96 mL/min (70-130); Calcium 8.4 mg/dL (7.8-10.44); Carbon Dioxide 24 mmol/L (22-29); Chloride 107 mmol/L (98-107); Estimated GFR-MDRD 89; Glucose 94 mg/dL (70-105); Potassium 3.7 mmol/L (3.5-5.1); Sodium 139 mmol/L (136-145)
[2020-02-26] MEDS: Sodium Chloride 0.9% 1,000 ML IV SCH ×2 (05:20→21:33)
[2020-02-26] MEDS: Enoxaparin Sodium 40 MG/0.4 ML SYRINGE SC SCH (08:05)
[2020-02-26] MEDS: ALPRAZolam 0.5 MG TAB PO SCH ×3 (08:05→21:33)
[2020-02-26] MEDS: Midodrine HCl 5 MG TAB PO SCH ×4 (08:05→21:33)
[2020-02-26] MEDS: Metoprolol Tartrate 25 MG TAB PO SCH (08:26)
[2020-02-26] MEDS ORDERED: PARoxetine 20 MG TAB PO SCH (09:00)
[2020-02-26] MEDS: HYDROcodone/Acetaminophen 5/325 mg Tablet PO SCH ×2 (12:54→19:27)
[2020-02-26] MEDS: Ondansetron PF 4 MG/2 ML Vial IVP PRN (12:58)
--- NOTE | 2020-02-26 14:56 | PDOC.CPN ---
- Subjective Date: 02/26/20 Time: 13:00 Interval history: Patient sitting up in bed, still states that she has elevated HR when standing and changing positions. Was started on Paxil to help with Anxiety management but did not like the way it made her feel, so it was stopped today. She denies any chest pain, shortness of breath, dizziness, near syncope or palpitations during exam today. - Review of Systems General: reports: fatigue. denies: fever/chills, weight/appetite/sleep changes, night sweats Respiratory: denies: cough, congestion, shortness of breath, exercise intolerance Cardiovascular: denies: chest pain, palpitation, edema, paroxysmal nocturnal dyspnea, orthopnea Gastrointestinal: denies: nausea, vomiting, diarrhea, constipation, abd pain, GI bleeding Musculoskeletal: denies: pain, tenderness, stiffness, swelling, arthritis/ arthralgias Neurological: denies: numbness, syncope, seizure, weakness - Objective Allergies/Adverse Reactions: Allergies Allergy/AdvReac Type Severity Reaction Status Date / Time Latex, Natural Rubber Allergy Mild Rash Verified 02/24/20 17:25 cephalexin [From Keflex] Allergy Verified 02/22/20 01:36 cortisone Allergy Verified 02/24/20 17:26 Iodine and Iodide Containing Allergy Verified 02/22/20 00:42 Produc Visit Medications: Current Medications Acetaminophen (Acetaminophen 325 Mg Tab) 650 mg PO Q4H PRN PRN Reason: Headache/Fever/Mild Pain (1-3) Acetaminophen (Acetaminophen 650 Mg Suppository) 650 mg FL Q4H PRN PRN Reason: Headache/Fever/Mild Pain (1-3) Hydrocodone Bitart/Acetaminophen (Hydrocodone/Acetaminophen 5/325 Mg Tablet) 1 tab PO Q6HR [facility] Last Admin: 02/26/20 12:54 Dose: Not Given Documented by: Alprazolam (Alprazolam 0.5 Mg Tab) 0.5 mg PO TID [facility] Last Admin: 02/26/20 14:32 Dose: 0.5 mg Documented by: Calcium Carbonate (Calcium Carbonate 500 Mg Chewtab) 1,000 mg PO Q4H PRN PRN Reason: Heartburn or Indigestion Enoxaparin Sodium (Enoxaparin Sodium 40 Mg/0.4 Ml Syringe) 40 mg SC 0900 [facility] Last Admin: 11/29/20 08:05 Dose: 40 mg Documented by: Sodium Chloride (Normal Saline 0.9%) 1,000 mls @ 75 mls/hr IV .[id number] [facility] Last Admin: 02/26/20 05:20 Dose: 1,000 mls Documented by: Metoprolol Tartrate (Metoprolol Tartrate 25 Mg Tab) 12.5 mg PO BID [facility] Last Admin: 02/26/20 08:26 Dose: 12.5 mg Documented by: Midodrine (Midodrine Hcl 5 Mg Tab) 10 mg PO TID [facility] Last Admin: 02/26/20 14:32 Dose: 10 mg Documented by: Miscellaneous Medication (Electrolyte Replacement Protoc 1 Each Each) 1 each FS ASDIR [facility] Ondansetron HCl (Ondansetron Odt 4 Mg Tab) 4 mg PO Q6H PRN PRN Reason: Nausea/Vomiting Ondansetron HCl (Ondansetron Pf 4 Mg/2 Ml Vial) 4 mg IVP Q6H PRN PRN Reason: Nausea/Vomiting Last Admin: 02/26/20 12:58 Dose: 4 mg Documented by: Paroxetine HCl (Paroxetine 20 Mg Tab) 20 mg PO DAILY [facility] Last Admin: 02/26/20 08:05 Dose: 20 mg Documented by: Sodium Chloride (Flush - Normal Saline 10 Ml Syringe) 10 ml IVF Q12HR [facility] Last Admin: 02/26/20 08:06 Dose: 10 ml Documented by: Sodium Chloride (Flush - Normal Saline 10 Ml Syringe) 10 ml IVF PRN PRN PRN Reason: Saline Flush Temazepam (Temazepam 15 Mg Cap) 15 mg PO HSPRN PRN PRN Reason: Insomnia Last Admin: 02/23/20 01:01 Dose: 15 mg Documented by: Vital Signs & Weight: Vital Signs Temp Pulse Pulse Pulse Pulse Resp BP 02/26/20 12:16 98.2 F 86 16 02/26/20 09:57 58 L 65 65 114/69 02/26/20 08:05 02/26/20 07:10 98.3 F 63 16 02/26/20 04:00 97.8 F 67 18 BP BP BP BP BP BP Pulse Ox 02/26/20 12:16 109/65 100 02/26/20 09:57 121/75 123/69 02/26/20 08:05 115/58 L 127/73 114/54 L 11/29/20 07:10 93/50 L 99 02/26/20 04:00 103/64 106/55 L 107/53 L 98 Weight 130 lb 5 oz - Physical Exam General: alert & oriented x3, appears well, no apparent distress HEENT: mucus membranes moist, normocephaly Neck: supple neck, no JVD/HJR, no masses, no bruit Cardiac: regular rate and rhythm, no murmur Lungs: clear to auscultation, normal breath sounds, no wheeze, rales, rhonchi Neuro: grossly intact, motor function intact, sensory function intact Abdomen: active bowel sounds, soft, non-tender, no masses, no pulsations/bruits Extremities: no cyanosis, no clubbing, no edema Skin: clear Musculoskeletal: normal range of motion, no pain - Labs Result Diagrams: 02/26/20 04:13 02/26/20 04:13 Troponin/CKMB Troponin I 0.018 ng/mL (< 0.028) 02/22/20 04:21 - EKG Interpretation EKG Method: Telemetry EKG: other (sinus bradycardia) EKG shows: bradycardia - Assessment/Plan Assessment/Plan: 1. Syncopal episode of unknown etiology. She did have an episode of sinus tachycardia in the 150's, this could possibly be from paroxyzmal orthostatic tachycardia syndrome (POTS). she also had a bradycardic episode in the 40's,which is likely due to the betablockers that were started on Thursday. 2. Sinus tachycardia: started on beta demi but d/t bradycardia episode last night will switch her to Corlanor (Ivabradine) we will start with a low dose 2.5 mg PO BID. Her Bp continues to be slightly hypotensive, so we will also continue Midodrine. She will possibly need to see a specialist for this if cannot be controlled with medications. 3. History of Hashimotos disease: managed by [employer] 4. Hypotension: more controlled with Midodrine, she did have a hypotensive episode this morning, so her dose of Midodrine was increased, we will also add Corlanor to try and decrease hypotension. 5. Anxiety: Managed by primary care services. She has been treated with Xanax, Paxil was added, but patient did not like the way it made her feel so it was dc'd. We have discussed this pt. together and I agree with a trial of Corlanor. She does not seem to be tolerating even low doses or betablockers. With HR in the 40's, she will be observed one more night. the betablocker should wear off in 24hrs. joseph
[2020-02-26] MEDS ORDERED: Atropine Sulfate 1 mg/10 ml Syringe IVP PRN (17:18)
--- NOTE | 2020-02-26 18:27 | PDOC.HOSPP ---
- Subjective Encounter Date: 02/26/20 - Objective Vital Signs & Weight: Vital Signs (12 hours) Temp Pulse Pulse Pulse Pulse Resp BP 02/26/20 16:10 98.7 F 72 16 02/26/20 12:16 98.2 F 86 16 02/26/20 09:57 58 L 65 65 114/69 02/26/20 08:05 02/26/20 07:10 98.3 F 63 16 BP BP BP BP BP BP Pulse Ox 02/26/20 16:10 126/78 99 02/26/20 12:16 109/65 100 02/26/20 09:57 121/75 123/69 02/26/20 08:05 115/58 L 127/73 114/54 L 02/26/20 07:10 93/50 L 99 Weight Weight 130 lb 5 oz I&O: 02/25/20 02/26/20 02/27/20 06:59 06:59 06:59 Intake Total 2089 2639 Output Total 200 550 Balance 1889 2089 Result Diagrams: 02/26/20 04:13 02/26/20 04:13 Additional Labs: Accuchecks 02/26/20 02/26/20 02/26/20 17:07 11:00 05:58 POC Glucose 97 93 83 02/25/20 20:40 POC Glucose 76 Hospitalist ROS - Medication Medications: Active Medications Generic Name Dose Route Start Last Admin Trade Name Freq PRN Reason Stop Dose Admin Hydrocodone Bitart/Acetaminophen 1 tab 02/26/20 12:00 02/26/20 12:54 Hydrocodone/Acetaminophen 5/325 Mg Tablet PO Not Given Q6HR RADU Alprazolam 0.5 mg 02/23/20 15:00 02/26/20 14:32 Alprazolam 0.5 Mg Tab PO 0.5 mg TID RADU Administration Enoxaparin Sodium 40 mg 02/22/20 09:00 02/26/20 08:05 Enoxaparin Sodium 40 Mg/0.4 Ml Syringe SC 40 mg 0900 RADU Administration Sodium Chloride 1,000 mls @ 75 mls/hr 02/24/20 15:45 02/26/20 05:20 Normal Saline 0.9% IV 1,000 mls .[id number] RADU Administration Midodrine 10 mg 02/26/20 09:00 02/26/20 14:32 Midodrine Hcl 5 Mg Tab PO 10 mg TID RADU Administration Ondansetron HCl 4 mg 02/21/20 23:43 02/26/20 12:58 Ondansetron Pf 4 Mg/2 Ml Vial IVP 4 mg Q6H PRN Administration Nausea/Vomiting Paroxetine HCl 20 mg 02/26/20 09:00 02/26/20 08:05 Paroxetine 20 Mg Tab PO 20 mg DAILY RADU Administration Sodium Chloride 10 ml 02/22/20 21:00 02/26/20 08:06 Flush - Normal Saline 10 Ml Syringe IVF 10 ml Q12HR RADU Administration Temazepam 15 mg 02/22/20 22:53 02/23/20 01:01 Temazepam 15 Mg Cap PO 15 mg HSPRN PRN Administration Insomnia - Exam General Appearance: awake alert ENT: normocephalic atraumatic Neck: supple, no JVD Heart: RRR Respiratory: normal chest expansion, no tachypnea Gastrointestinal: soft Extremities: no cyanosis, no clubbing Hosp A/P (1) Hypotension Status: Acute (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 THYROIDITIS Status: Chronic (3) Syncope Code(s): R55 - SYNCOPE AND COLLAPSE Status: Suspected (4) Anxiety Code(s): F41.9 - ANXIETY DISORDER, UNSPECIFIED Status: Acute - Plan 02/23: The patient's tachycardia seems to have improved with management of anxiety with Xanax in addition to treating her with metoprolol. She is reporting increased heart rate when she tries to stand up associated with dizziness. Her blood pressure has been marginal. We will continue IV fluids and see if improving her blood pressure will lead to resolution of her symptoms. If her symptoms remain persistent and the likelihood for orthostatic sinus tachycardia syndrome remains high, we will await EP evaluation on Thursday. 02/24: The patient remains with orthostatic hypotension. She received a bolus of NS today. Started midodrine 5 mg p.o. 3 times daily. Metoprolol titrate dose to 12.5 due to bradycardia. Anxiety is still present despite Xanax. Start low-dose paroxetine. 02/25: The patient is complaining of having side effects of the paroxetine. The medication has been discontinued. She is still anxious. Her blood pressure improved with increasing midodrine to 10 mg orally 3 times daily. She has been bradycardic and metoprolol has been discontinued. Ivabradine was started by cardiology.
[2020-02-26] MEDS ORDERED: Ivabradine 5 MG TAB PO SCH (21:00)
[2020-02-27 04:37] LABS: #Eosinphils 0.1 thou/uL (0.0-0.7); #Lymphocytes 1.4 thou/uL (1.20-3.40); #Monocytes 0.3 thou/uL (0.11-0.59); #Neutrophils 1.9 thou/uL (1.40-6.50); %Basophils 0.7 % (0.0-1.0); %Eosinophils 1.7 % (0.0-10.0); %Lymphocytes 38.9 % (21.0-51.0); %Monocytes 8.8 % (0.0-10.0); Hemoglobin 12.1 g/dL (12.0-16.0); Mean Corpuscular HGB CONC 34.1 g/dL (32.0-36.0); Mean Corpuscular Hemoglobin 32.5 pg (27.0-31.0); Mean Corpuscular Volume 95.5 fL (78.0-98.0); Mean Platelet Volume 8.8 fL (7.4-10.4); Platelet Count 135 thou/uL (130-400); RBC Distribution Width 10.7 % (11.5-14.5); Red Blood Cell (RBC) Count 3.71 mill/uL (4.20-5.40); White Blood Cell (WBC) Count 3.7 thou/uL (4.8-10.8)
[2020-02-27 05:04] LABS: Anion Gap 11 mmol/L (10-20); BUN (Urea Nitrogen) 10 mg/dL (7.0-18.7); Calc. Creatinine Clearance 97 mL/min (70-130); Calcium 8.2 mg/dL (7.8-10.44); Carbon Dioxide 24 mmol/L (22-29); Chloride 107 mmol/L (98-107); Estimated GFR-MDRD 89; Glucose 84 mg/dL (70-105); Potassium 3.6 mmol/L (3.5-5.1); Sodium 138 mmol/L (136-145)
[2020-02-27] MEDS: ALPRAZolam 0.5 MG TAB PO SCH ×2 (08:32→14:40)
[2020-02-27] MEDS: Midodrine HCl 5 MG TAB PO SCH ×2 (08:32→14:40)
[2020-02-27] MEDS: Enoxaparin Sodium 40 MG/0.4 ML SYRINGE SC SCH (08:33)
[2020-02-27] MEDS ORDERED: Ivabradine 5 MG TAB PO SCH (09:00)
[2020-02-27 13:26] VITALS: BP 122/73; TEMP 97.8
--- NOTE | 2020-02-27 13:58 | PDOC.DS.DS ---
Provider - Provider Date of Admission: 02/21/20 22:54 Date of Discharge: 02/27/20 Admitting Provider: Aquiles De La Cruz Primary Care Physician: OUT OF TOWN Course - Hospital Course Hospital Course: The patient is a 39-year-old female with past medical history of Jo Ann thyroiditis and celiac disease who presented with multiple episodes of lightheadedness and near syncope. The patient reported her heart rate was elevated at home between 120 and 160. Initial endocrinological evaluation revealed no evidence of abnormal adrenal or thyroid function. Her cardiac m onitor revealed evidence of sinus tachycardia that is intermittent and especially when the patient stands up. Orthostatic hypotension was present and the patient has severe anxiety with shaking and tachycardia. Her condition was controlled with Xanax and midodrine and the patient has been stable prior to discharge. Resuscitation Status: 02/21/20 23:43 Resuscitation Status Routine Resuscitation Status: FULL: Full Resuscitation - Labs Lab Results: 02/27/20 04:12 02/27/20 04:11 Abnormal Lab Results - Last 48 hrs 02/26/20 04:13: WBC 4.0 L, RBC 3.82 L, MCH 32.1 H, RDW 10.8 L 02/27/20 04:12: WBC 3.7 L, RBC 3.71 L, Hct 35.4 L, MCH 32.5 H, RDW 10.7 L Microbiology - Entire Visit 02/22/20 09:55 Urine clean catch Urine Culture - Final NO GROWTH AT 48 HOURS - Physical Exam Vitals: Vital Signs (12 hours) Temp Pulse Resp BP BP Pulse Ox 02/27/20 12:15 97.8 F 60 17 122/73 97 02/27/20 08:04 98.4 F 54 L 16 111/61 98 02/27/20 04:00 98.1 F 61 14 111/63 97 Weight Weight 127 lb 8 oz Physical Exam: The patient was seen and examined on the day of discharge. Problem - Problem (1) Hypotension Status: Acute (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 THYROIDITIS Status: Chronic (3) Syncope Code(s): R55 - SYNCOPE AND COLLAPSE Status: Suspected (4) Anxiety Code(s): F41.9 - ANXIETY DISORDER, UNSPECIFIED Status: Acute - Time spent with Patient (mins): 31 Plan - Discharge Medications Prescriptions: Midodrine 10 mg PO Q8HR #90 tab ALPRAZolam [Xanax] 0.5 mg PO TID #90 tab Home Medications: Medication Instructions Recorded Confirmed Type ALPRAZolam [Xanax] 0.5 mg PO TID #90 tab 02/27/20 Rx Midodrine 10 mg PO Q8HR #90 tab 02/27/20 Rx Allergies: Latex, Natural Rubber Allergy (Mild, Verified 02/24/20 17:25) Rash cephalexin [From Keflex] Allergy (Verified 02/22/20 01:36) cortisone Allergy (Verified 02/24/20 17:26) Iodine and Iodide Containing Produc Allergy (Verified 02/22/20 00:42) - Follow up Plan Referrals: [facility] PHYSICIAN,OUT OF [Primary Care Provider] - 7 Days (Please call and make a follow-up appointment within 7 days. ) Disposition: HOME Quality - Care Measures CORE MEASURES:: N/A
[2020-02-27] MEDS: Sodium Chloride 0.9% 1,000 ML IV SCH (14:16)
--- NOTE | 2020-02-29 06:15 | PQF ---
CLINICAL DOCUMENTATION CLARIFICATION FORM: Dear : Sonal Hodge Date / Time: 02/29/20 0615 Please exercise your independent, professional judgment in responding to the clarification form. Clinical indicators are provided on the bottom of this form for your review In your clinical opinion based on clinical findings below, can you please identify the etiology of Syncope if due to: Please check appropriate box(es): [ >] POTS [ >] Orthostatic Hypotension [ ] Other diagnosis, please specify [ ] Unable to determine Physician Signature: Date/Time: For continuity of documentation, please document condition throughout progress notes and discharge summary. Thank You. To be completed by CDI/Coding staff for physician review: Present Clinical Indicators - Signs / Symptoms / Labs Results and Location in Medical Record [X] BP 150/73, Pulse 110, Resp 20 Vital signs 02/21 [X] BP 118/58, Pulse 83, Resp 18 Vital signs 02/23 [X] Presented with episode of syncope H&P p1 02/21 Dr De La Cruz [X] Syncope, EKG sinus tachycardia H&P p3 02/21 Dr De La Cruz [X] Episode of syncope, uncertain etiology. She also has an episode of heart rate in 40s. This could also represent postural orthostatic tachycardia syndrome Consult Dr Stroud 02/22 [X] Orthostatic hypotension HPN p5 02/24 Dr Hodge Present Risk Factors Results and Location in Medical Record [X] Jo Ann thyroiditis H&P p1 02/21 Dr De La Cruz [X] Smoker H&P p1 02/21 Dr De La Cruz Present Treatments Results and Location in Medical Record [X] IVF NS 1L JUN 07 [X] Lopressor 25 mg oral JUN 07 [X] Neuro consult Consult Dr Perez 02/21 [X] Cardiology consult Consult Dr Stroud 02/22 [X] Telemetry monitoring H&P p3 02/21 Dr De La Cruz CDS/Grain Loader Signature: Katherine Renee Phone #: [phone] Date/Time: 02/29/2020 0615 This is a permanent part of the Medical Record [facility]
[2020-02-29 18:36] LABS: Metanephrine,Plasma <10.0 pg/mL (0.0-88.0); Normetanephrine,Pl 25.9 pg/mL (0.0-110.1)
== END 2020-02-27 15:10 | disposition home or self-care (01) | DRG 312 ==
LOC: ERS 20:34 → 2NO 22:54 → OBSVTOIN 22:54
PROVIDERS: ADMIT Internal Medicine; ATTEND Internal Medicine
DX: I95.1 Orthostatic hypotension (principal); I47.1 Supraventricular tachycardia; I49.8 Other specified cardiac arrhythmias; E06.3 Autoimmune thyroiditis; F41.9 Anxiety disorder, unspecified; Z20.828 Contact with and (suspected) exposure to other viral communicable diseases; E03.9 Hypothyroidism, unspecified; F17.210 Nicotine dependence, cigarettes, uncomplicated; K90.0 Celiac disease; F41.1 Generalized anxiety disorder; I65.22 Occlusion and stenosis of left carotid artery; I10 Essential (primary) hypertension; E11.9 Type 2 diabetes mellitus without complications; E78.00 Pure hypercholesterolemia, unspecified; R51.9 Headache, unspecified; R00.1 Bradycardia, unspecified; Z79.899 Other long term (current) drug therapy; Z88.8 Allergy status to other drugs, medicaments and biological substances; Z88.1 Allergy status to other antibiotic agents; Z91.041 Radiographic dye allergy status; Z91.040 Latex allergy status
CPT/HCPCS: 36415; 36416; 70551; 71045; 76536; 80048; 80053; 80306; 80400; 81001; 82533; 83735; 83835; 83880; 84439; 84443; 84481; 84484; 85025; 87086; 87635; 93005; 93010; 93306; 93880; 96372; 96374; 96375; G0378; J0834; J1200; J1650; J2405; J3475; U0003

== ENCOUNTER 2020-02-28 20:54 | Observation (INO) | payer BC ==
[2020-02-28] MEDS ORDERED: Ondansetron PF 4 MG/2 ML Vial ONE (21:53)
[2020-02-28 22:01] LABS: #Lymphocytes 1.4 thou/uL (1.20-3.40); #Monocytes 0.3 thou/uL (0.11-0.59); #Neutrophils 2.8 thou/uL (1.40-6.50); %Basophils 0.5 % (0.0-1.0); %Eosinophils 0.7 % (0.0-10.0); %Lymphocytes 31.1 % (21.0-51.0); %Monocytes 6.4 % (0.0-10.0); %Neutrophils 61.3 % (42.0-75.0); Hemoglobin 15.3 g/dL (12.0-16.0); Mean Corpuscular HGB CONC 32.8 g/dL (32.0-36.0); Mean Corpuscular Hemoglobin 30.6 pg (27.0-31.0); Mean Corpuscular Volume 93.1 fL (78.0-98.0); Mean Platelet Volume 8.6 fL (7.4-10.4); Platelet Count 183 thou/uL (130-400); RBC Distribution Width 10.8 % (11.5-14.5); Red Blood Cell (RBC) Count 4.99 mill/uL (4.20-5.40); White Blood Cell (WBC) Count 4.6 thou/uL (4.8-10.8)
[2020-02-28 22:24] LABS: ALT (SGPT) 71 U/L (8-55); AST (SGOT) 36 U/L (5-34); Albumin 4.8 g/dL (3.5-5.0); Alkaline Phosphatase 135 U/L (40-110); Anion Gap 16 mmol/L (10-20); BUN (Urea Nitrogen) 11 mg/dL (7.0-18.7); Bilirubin, Total 0.4 mg/dL (0.2-1.2); CK (CPK) 35 U/L (29-168); Calc. Creatinine Clearance 0 mL/min (70-130); Calcium 9.9 mg/dL (7.8-10.44); Carbon Dioxide 25 mmol/L (22-29); Chloride 102 mmol/L (98-107); Glucose 96 mg/dL (70-105); Lipase 17 U/L (8-78); Potassium 3.4 mmol/L (3.5-5.1); Protein, Total 7.8 g/dL (6.0-8.3); Sodium 140 mmol/L (136-145)
[2020-02-29] MEDS ORDERED: ALPRAZolam 0.5 MG TAB PO PRN (00:32)
[2020-02-29] MEDS ORDERED: Potassium Chloride 20 MEQ TAB PO SCH (00:45)
[2020-02-29] MEDS ORDERED: Midodrine HCl 5 MG TAB PO SCH ×2 (00:45→09:00)
[2020-02-29] MEDS ORDERED: Potassium Chloride 20 MEQ TAB ONE (01:26)
--- NOTE | 2020-02-29 01:54 | HP ---
REASON FOR ADMISSION: Palpitation and near syncope. HISTORY OF PRESENT ILLNESS: This is a 39-year-old female patient, who was discharged approximately 24 hours ago from our hospital. She was diagnosed with possible postural orthostatic tachycardia syndrome. Cardiology did see her and recommended electrophysiology consultation, but that was difficulty scheduling such consultation due to holidays and geographic location since as per the patient the consultants are in [place] or [place]. The patient was started on midodrine and Xanax for her anxiety. The patient did note some improvement. She went home today at 6:30 a.m. she was awakened by her heart pounding. She took midodrine and Xanax 2 hours earlier than her usual dose and all day, she noticed her heart rate bouncing up and down and had episodes where she felt that she is going to pass out whenever she was sitting upright. In the emergency room, her heart rate did go from 132 beats per minute to 77 beats per minute in a matter of minutes. When I saw her, she was having involuntary tremors involving her lower extremities. She said that she has been having these episodes to her anxiety. PAST MEDICAL HISTORY: 1. Jo Ann thyroiditis. 2. Celiac disease. SOCIAL HISTORY: She smokes. Does not drink alcohol, does not use illegal substance. FAMILY HISTORY: Negative for premature coronary artery disease. REVIEW OF SYSTEMS: All systems reviewed except the above mentioned, found to be negative. PHYSICAL EXAMINATION: GENERAL: Awake, alert, oriented, does not appear in distress. VITAL SIGNS: Her blood pressure is 124/80, pulse of 79, temperature is 99.2, saturating 96% on room air. HEAD: Nontraumatic, normocephalic. Pupils equal, reactive. Extraocular movements are intact. Nonicteric sclerae. Well injected conjunctivae. Oral mucosa normal. Nasal mucosa normal. NECK: Supple. No adenopathy. No murmur. Thyroid is palpable. Trachea is midline. No supraclavicular adenopathy. CARDIOVASCULAR: S1, S2 regular. No murmur. No gallops. No friction rub. No displacement of PMI. LUNGS: Clear to auscultation bilaterally. No wheezes, rhonchi, no crackles. Bowel sounds are positive. Nontender abdomen. No hepatosplenomegaly. No lower extremity edema. No cyanosis noted. NEUROLOGIC: Cranial nerves 2 through 12 within normal limits. Normal motor function. Normal sensory function reflexes. LABORATORY DATA: Blood work shows WBC of 4.6, hemoglobin of 15.3, platelets of 183. Sodium 140, potassium 3.4, bicarb of 25, BUN of 11, creatinine 0.86. AST 36, previously 10; ALT 71, previously in January, less than 7; and alkaline phosphatase 135, previous to that 66. A chest x-ray per my read does not show any abnormality. A CT of the chest is done, but report still pending. ASSESSMENT AND PLAN: This is a 39-year-old female patient, who is presenting with recurrence and persistence of her symptoms most likely related to postural orthostatic tachycardia syndrome. She was advised to follow with Electrophysiology, but unable to schedule an appointment so far. She was just discharged from our hospital, while she was in the hospital, she was trialed on metoprolol, but this caused her bradycardia, so she was discharged on midodrine and Xanax. She also reporting involuntary tremors in her lower extremities and sometimes her whole body, but she does not lose consciousness. When I was examining her, I did witness tremors in her right lower extremity. Cardiac: The patient will be monitored on telemetry. Will be continued on midodrine. We will ask Cardiology to see her again. I have asked nursing to use a binder whenever she sits up. Maybe that will help with her orthostasis. Neurology: The patient does have involuntary tremors. This could be partial seizures. We will do an EEG. Meanwhile, we will maintain her on Xanax on a as needed basis. For DVT prophylaxis, SCDs. The patient lab work does exhibit slight elevation of her LFTs. We will recheck them in the morning. No obvious reason for this elevation. Job ID: [id number]
[2020-02-29 04:34] LABS: ALT (SGPT) 49 U/L (8-55); AST (SGOT) 26 U/L (5-34); Albumin 3.5 g/dL (3.5-5.0); Alkaline Phosphatase 97 U/L (40-110); Anion Gap 11 mmol/L (10-20); BUN (Urea Nitrogen) 9 mg/dL (7.0-18.7); Bilirubin, Total 0.4 mg/dL (0.2-1.2); Calc. Creatinine Clearance 0 mL/min (70-130); Calcium 8.3 mg/dL (7.8-10.44); Carbon Dioxide 23 mmol/L (22-29); Chloride 108 mmol/L (98-107); Globulin 2.2 g/dL (2.4-3.5); Glucose 96 mg/dL (70-105); Potassium 3.4 mmol/L (3.5-5.1); Protein, Total 5.7 g/dL (6.0-8.3); Sodium 139 mmol/L (136-145)
--- NOTE | 2020-02-29 07:04 | RAD ---
SINGLE VIEW CHEST: Date: 02/28/2020 COMPARISON: 02/21/2020. HISTORY: Syncope. FINDINGS: Single view of the chest shows a normal sized cardiomediastinal silhouette. There is no evidence of c onsolidation, mass, or pleural effusion. The bones are unremarkable. IMPRESSION: No evidence of acute cardiopulmonary disease. POS: EAA
--- NOTE | 2020-02-29 07:23 | CT ---
CT CHEST WITHOUT CONTRAST: Date: 02/28/2020 HISTORY: Lightheadedness and recurrent syncope. TECHNIQUE: Multiple contiguous axial images were obtained in a CT of the chest without contrast. Sagittal and co henry reformats were performed. FINDINGS: No focal infiltrates or masses are seen in the lungs. No pneumothorax or pleural effusion seen. The heart is normal in size without focal cardiac abnormality. No hilar or mediastinal lymphadenopath y seen. There are calcified gallstones in the gallbladder. The other visualized subdiaphragmatic structures a re unremarkable. The chest wall soft tissues are unremarkable. The bones are unremarkable. IMPRESSION: 1. No evidence of acute intrathoracic abnormality. 2. Cholelithiasis. POS: EAA
[2020-02-29] MEDS: Sodium Chloride 0.9% 1,000 ML IV SCH (14:25)
[2020-02-29] MEDS: Midodrine HCl 5 MG TAB PO SCH ×2 (16:16→22:12)
[2020-03-01] MEDS: Sodium Chloride 0.9% 1,000 ML IV SCH (04:10)
--- NOTE | 2020-03-01 06:48 | CON ---
DATE OF CONSULTATION: 02/29/2020 Dictated by Amanda Rojas, nurse practitioner, as a scribe for Dr. Brendon Newberry. REASON FOR CONSULTATION: Syncope, tachycardia, and palpitations. HISTORY OF PRESENT ILLNESS: Ms. Tena is a 39-year-old female who presents to the hospital reporting frequent heart racing, palpitations, dizziness, near syncope, frequent syncope and collapse having started in the past 3 to 4 weeks. She monitors her heart rate with her Apple watch. These syncopal events started approximately 3 to 4 weeks ago. They can occur at rest, but usually occur with any attempted activity, even with minimal exertion. It starts off as a fuzzy/foggy head feeling like she cannot think clearly, which then progresses with tachycardia frequently with GI upset/nausea and eventually resulting in her passing out for a few seconds and waking up in a panic. She was recently hospitalized for this issue and discharged on 02/26. During the hospital stay, she was seen to have intermittent sinus tachycardia, especially when standing up with positive orthostatic hypotension. She was discharged on Xanax and midodrine 10 mg t.i.d. She has not been tolerating this medication well, reporting eye burning, itching, and nausea. She has not been able to eat or drink adequately with her nausea, reporting maybe 20 to 30 ounces of fluid intake during the day. She denies any caffeine or stimulant intake. She quit smoking 3 weeks ago when these episodes started. She denies any recent illness, viral or febrile. She has had some urinary frequency or urgency issues lately and struggled with suspected UTIs earlier this year. Historically, she has been diagnosed with Jo Ann thyroiditis and also celiac disease. She has struggled with significant anxiety and severe social anxiety that she reports is nearly crippling for her. REVIEW OF SYSTEMS: Positive for dizziness, palpitations, tremor, recent passing out, nausea, poor oral food and water intake. Also, positive for anxiety. Otherwise, 12-point review of systems is negative. PROBLEM LIST: 1. Recurrent syncope and collapse of unknown etiology starting 3 weeks ago. 2. History of Jo Ann thyroiditis. 3. History of tobacco habituation, quit early January. 4. History of migraines. 5. History of social anxiety. 6. History of orthostatic hypotension. ALLERGIES: INCLUDE LATEX, NATURAL RUBBER, CEPHALEXIN, CORTISONE, IODINE AND IODINE CONTAINING PRODUCTS INCLUDING REPORTEDLY ANAPHYLACTIC REACTION TO IV CONTRAST. HOME MEDICATIONS: 1. Midodrine 10 mg p.o. t.i.d. 2. Xanax 0.5 mg p.o. t.i.d. p.r.n. anxiety. FAMILY HISTORY: Negative for sudden cardiac or early-onset CAD. SOCIAL HISTORY: She is . 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 [place] Denies alcohol or illicit drug use. Quit smoking 3 weeks ago reportedly. PHYSICAL EXAMINATION: VITAL SIGNS: Most recent vital signs; temperature 99.2, blood pressure 124/80, pulse 79, respirations 16, and oxygen 96% on room air. HEENT: She is normocephalic and atraumatic. Sclerae are anicteric. EOMs are intact. Oral mucosa is moist and pink with adequate dentition. GENERAL: She is alert. She is oriented. She is tearful and very emotional during this exam. Other than appearing quite anxious, she is in no apparent distress. NECK: Supple without jugular venous distention. There is no lymphadenopathy. Her trachea is midline. HEART: Rate is irregularly irregular with crisp S1 and S2. No murmur, rub, or gallop is appreciated. PMI is nondisplaced. LUNGS: Clear to auscultation bilaterally without wheezes, crackles, or rhonchi. Respirations are even and unlabored with good bilateral excursion. ABDOMEN: Soft and nontender without palpable masses. Hepatojugular reflux is negative. There are positive bowel sounds noted throughout. EXTREMITIES: Warm and dry to touch. Well perfused without clubbing, cyanosis, or edema. NEUROLOGIC: Grossly intact. No focal deficits are noted. As mentioned, she has occasional nervous tremor when she is quite anxious and emotional throughout this exam. Gait was not assessed. DATABASE: WBC unremarkable. Chemistry; potassium 3.4, creatinine 0.73. AST 26, ALT 49, ALK 97. Troponin negative. TSH on 02/20 was 1.69, T3 on 02/21 was 3.43, and free T4 on 02/21 was 1.07. Magnesium on 04/[address] on 02/28/2020: No acute intrathoracic abnormality. Cholelithiasis was suggested. On 02/22/2020, brain MRI, unremarkable MRI of the brain. On 02/22/2020, echocardiogram, LVEF 55% to 60%, mild mitral regurgitation, and mild tricuspid regurgitation. On 02/22/2020, thyroid ultrasound, grossly unremarkable thyroid ultrasound. Nonsignificant thyroid nodule. Carotid Doppler on 02/22/2020: Mildly elevated velocity in the left common carotid with a moderate degree of stenosis measuring 50% to 69%. Telemetry and EKG showed sinus rhythm in the 80s ongoing. Initial EKG, 12-lead ECG yesterday at 2102 hours shows sinus tachycardia at a rate of 122 beats per minute with a significant amount of baseline artifact, likely with a tremor. Fifteen minutes later, ECG shows sinus rhythm at a rate of 77 beats per minute, QRS 98 milliseconds, PA interval 138 milliseconds. IMPRESSION: 1. Recurrent syncope and collapse of unknown etiology. 2. Sinus tachycardia, transient. 3. Documented prior orthostatic hypotension. 4. Anxiety. 5. Structurally normal heart with preserved left ventricular ejection fraction. PLAN AND RECOMMENDATIONS: Ms. Tena is a 39-year-old woman who unfortunately struggles with recent onset of frequent palpitations, tachycardia, and recurrent syncope and collapse of unknown etiology. During a recent hospitalization, she underwent a substantial evaluation including brain MRI, chest CT, thyroid ultrasound, carotid Doppler, and echocardiogram. All of these essentially suggest normal results other than some mild left carotid artery stenosis in addition to gallstones. She was discharged on midodrine, which she has not been tolerating well and reports significant nausea and poor oral intake. This is certainly not helping her symptoms at all and could also be part of the mechanism driving her tachycardia and activity intolerance with suspected dehydration. There is concern that she may have postural orthostatic tachycardia syndrome, although this is certainly a diagnosis of exclusion. For now, my recommendation would be adequate hydration, salt loading. We will decrease her midodrine as she is not tolerating this well and it is limiting her oral intake, and we will attempt low-dose Florinef, which was discussed with her at length. She has been tried on SSRIs reportedly and has not tolerated them. At this point, I see no documented severe bradycardia or pauses that would warrant pacemaker and only limited tachycardia, although she may truly be going significantly faster than is documented while she is at home trying to move around. We will recheck orthostatic blood pressures and adjust the medications as mentioned, and follow up in the morning. This was discussed at length with her including lifestyle modification and supportive measures including compression hose and adequate hydration of at least 4 L a day in addition to salt loading of 5 to 10 g a day. Thank you for allowing me to participate in the care of this patient. We will continue to follow. Job ID: [id number]
[2020-03-01] MEDS: Midodrine HCl 5 MG TAB PO SCH ×2 (08:41→15:23)
--- NOTE | 2020-03-01 12:01 | PDOC.EP ---
- Subjective Date: 03/01/20 Time: 08:00 Interval History: having less dizziness. No recurrent passing out. Still reports tachycardia when out of bed. Newly recalled persisting symptom of neck pain at the base of her skull. also reporting a tick bite in the recent past - Review of Systems Constitutional: reports: malaise, weakness. denies: chills, fever, sweats Respiratory: denies: cough, dry, hemoptysis Cardiology: reports: heart racing, light headedness, palpitations. denies: chest pain, edema, orthopnea, passing out Gastrointestinal: denies: abdominal pain, constipation, nausea ( improved), vomitting - Objective Allergies/Adverse Reactions: Allergies Allergy/AdvReac Type Severity Reaction Status Date / Time Latex, Natural Rubber Allergy Mild Rash Verified 02/24/20 17:25 cephalexin [From Keflex] Allergy Verified 02/22/20 01:36 cortisone Allergy Verified 02/24/20 17:26 Iodine and Iodide Containing Allergy Verified 02/22/20 00:42 Produc Current Medications Alprazolam (Alprazolam 0.5 Mg Tab) 0.5 mg PO TIDPRN PRN PRN Reason: Anxiety Last Admin: 02/29/20 22:12 Dose: 0.5 mg Documented by: Sodium Chloride (Normal Saline 0.9%) 1,000 mls @ 75 mls/hr IV .[id number] [facility] Last Admin: 03/01/20 04:10 Dose: 1,000 mls Documented by: Midodrine (Midodrine Hcl 5 Mg Tab) 5 mg PO TID [facility] Last Admin: 03/01/20 08:41 Dose: 5 mg Documented by: Vital Signs & Weight: Vital Signs Temp Pulse Resp BP BP BP Pulse Ox 03/01/20 08:00 97.8 F 101 H 17 118/55 L 98 03/01/20 04:15 98.4 F 78 16 98/64 103/65 129/64 100 03/01/20 00:00 50 L 16 Weight 122 lb 6.4 oz I/O: I/O 02/29/20 03/01/20 03/02/20 06:59 06:59 06:59 Intake Total 760 Output Total 500 Balance 260 - Physical Exam General: alert & oriented x3, no apparent distress, cachectic, speech clear. negative: appears well, affect appropriate ( tearful) HEENT: mucus membranes moist, normocephaly, EOMI Neck: supple neck, midline trachea, no JVD/HJR Cardiology: regular rate and rhythm, no murmur, PMI nondisplaced Lungs: clear to auscultation, normal breath sounds, no wheeze, rales, rhonchi Neurology: cranial nerve 2-12 intact, grossly intact, no lateralizing findings - Labs Result Diagrams: 02/28/20 21:28 02/29/20 03:27 - EKG Interpretation EKG Method: Telemetry EKG shows: Sinus rhythm - Assessment/Plan Assessment/Plan: 1. Recurrent syncope and collapse of unknown etiology. - suspected due to hypotension with dehydration 2. Sinus tachycardia, transient. 3. Documented prior orthostatic hypotension. 4. Anxiety. 5. Structurally normal heart with preserved left ventricular ejection fraction. she appears fairly cachectic with very poor oral intake in the past few weeks. she reports significant nausea on full-dose midodrine. Her appetite is returning today on midodrine 5 mg t.i.d.. This is not been is significantly beneficial for her so far. She has largely been sedentary in bed in a fully recumbent position recently. some paroxysmal sinus tachycardia is seen when she gets out of bed, which I suspect at this point is a compensatory mechanism related to her dehydration and poor nutritional status. the she would mostly benefit from adequate hydration, bed exercises, salt loading up to 10 g a day and a nutrition consult. At this point there have been no arrhythmias other than sinus tachycardia correlating with her dizziness and near-syncope symptoms. no further EP workup is planned at this time.
--- NOTE | 2020-03-01 12:10 | PDOC.EEG ---
Neurology EEG Report - Report Report: EEG was performed using 24 channel [employer]asm[employer]tek video digital EEG machine with 24 disc electrodes. This was an extended 2-hour 6 minutes of inpatient video EEG recording. Digital analysis of the EEG was done for Lino and seizure detection which revealed no abnormalities. Background: The posterior background rhythm is 9 to 10 Hz background rhythm attenuates with eye opening enhances with eye closure. Hyperventilation: Not performed. Photic stimulation: No significant response seen with photic stimulation. Sleep: Drowsiness is observed. EEG diagnosis: Normal awake and drowsy EEG.
[2020-03-01 12:36] VITALS: TEMP 98.3
[2020-03-01 14:12] VITALS: BMI 17.0
--- NOTE | 2020-03-01 14:31 | PDOC.DS.DS ---
Provider - Provider Date of Admission: 02/28/20 22:44 Date of Discharge: 03/01/20 Admitting Provider: Madeleine Lawrence MD Primary Care Physician: OUT OF TOWN Course - Hospital Course Hospital Course: Patient was readmitted due to syncope and tachycardia at home. She was evaluated by physiatry service and the recommendations listed below. "1. Recurrent syncope and collapse of unknown etiology- suspected due to hypotension with dehydration 2. Sinus tachycardia, transient. 3. Documented prior orthostatic hypotension. 4. Anxiety. 5. Structurally normal heart with preserved left ventricular ejection fraction. she appears fairly cachectic with very poor oral intake in the past few weeks. she reports significant nausea on full-dose midodrine. Her appetite is returning today on midodrine 5 mg t.i.d.. This is not been is significantly beneficial for her so far. She has largely been sedentary in bed in a fully recumbent position recently. some paroxysmal sinus tachycardia is seen when she gets out of bed, which I suspect at this point is a compensatory mechanism related to her dehydration and poor nutritional status. the she would mostly benefit from adequate hydration, bed exercises, salt loading up to 10 g a day and a nutrition consult. At this point there have been no arrhythmias other than sinus tachycardia correlating with her dizziness and near-syncope symptoms. no further EP workup is planned at this time." Resuscitation Status: 02/29/20 00:37 Resuscitation Status Routine Resuscitation Status: FULL: Full Resuscitation - Labs Lab Results: 02/28/20 21:28 02/29/20 03:27 Abnormal Lab Results - Last 48 hrs 02/28/20 21:28: Potassium 3.4 L, AST 36 H, ALT 71 H, Alkaline Phosphatase 135 H 02/28/20 21:28: WBC 4.6 L, RDW 10.8 L 02/29/20 03:27: Potassium 3.4 L, Chloride 108 H, Serum Total Protein 5.7 L, Globulin 2.2 L - Physical Exam Vitals: Vital Signs (12 hours) Temp Pulse Resp BP BP BP Pulse Ox 03/01/20 12:00 98.3 F 82 17 113/59 L 100 03/01/20 08:00 97.8 F 101 H 17 118/55 L 98 03/01/20 04:15 98.4 F 78 16 98/64 103/65 129/64 100 Weight Admit Weight 129 lb Weight 122 lb 6.4 oz Physical Exam: The patient was seen and examined on the day of discharge. Problem - Problem (1) Anxiety Code(s): F41.9 - ANXIETY DISORDER, UNSPECIFIED Status: Acute (2) Dehydration Code(s): E86.0 - DEHYDRATION Status: Acute (3) Syncope Code(s): R55 - SYNCOPE AND COLLAPSE Status: Suspected - Time spent with Patient (mins): 31 Plan - Discharge Medications Home Medications: Medication Instructions Recorded Confirmed Type ALPRAZolam [Xanax] 0.5 mg PO TID #90 tab 02/27/20 02/29/20 Rx Midodrine 5 mg PO Q8HR #90 tab 03/01/20 02/29/20 Rx Allergies: Latex, Natural Rubber Allergy (Mild, Verified 02/24/20 17:25) Rash cephalexin [From Keflex] Allergy (Verified 02/22/20 01:36) cortisone Allergy (Verified 02/24/20 17:26) Iodine and Iodide Containing Produc Allergy (Verified 02/22/20 00:42) - Follow up Plan Referrals: [facility],OUT OF [Primary Care Provider] - Disposition: HOME Quality - Care Measures CORE MEASURES:: N/A
[2020-03-01 15:46] VITALS: BP 124/61
== END 2020-03-01 16:00 | disposition home or self-care (01) ==
LOC: ERS 20:54 → 2NO 22:35 → ERHOLD 22:44 → 2NO 02-29 15:45
PROVIDERS: ADMIT Internal Medicine; ATTEND Internal Medicine
DX: R55 Syncope and collapse (principal); R00.0 Tachycardia, unspecified; F41.9 Anxiety disorder, unspecified; R00.2 Palpitations; R42 Dizziness and giddiness; E86.0 Dehydration; E06.3 Autoimmune thyroiditis; K90.0 Celiac disease; K80.20 Calculus of gallbladder without cholecystitis without obstruction; R25.1 Tremor, unspecified; R64 Cachexia; Z68.1 Body mass index [BMI] 19.9 or less, adult; Z87.891 Personal history of nicotine dependence; Z79.899 Other long term (current) drug therapy; Z88.1 Allergy status to other antibiotic agents; Z88.8 Allergy status to other drugs, medicaments and biological substances; Z91.040 Latex allergy status; Z91.041 Radiographic dye allergy status
CPT/HCPCS: 36415; 71045; 71250; 80053; 82550; 83690; 84484; 85025; 93005; 94760; 95712; 95816; 95819; 95957; 96374; G0378; J2405

== ENCOUNTER 2020-04-13 19:11 | Emergency (ER) | payer BC ==
--- NOTE | 2020-04-13 19:59 | RAD ---
XR Chest 1 View Portable HISTORY: Chest pain and shortness of breath. Postural tachycardia, syncope COMPARISON: 02/28/2020 FINDINGS: The heart size is normal. The lungs are well expanded without focal areas of consolidation, pneumothorax or pleural effusions. IMPRESSION: No radiographic evidence of acute cardiopulmonary process.
[2020-04-13 20:14] LABS: #Eosinphils 0.1 thou/uL (0.0-0.7); #Lymphocytes 1.6 thou/uL (1.20-3.40); #Monocytes 0.4 thou/uL (0.11-0.59); #Neutrophils 4.9 thou/uL (1.40-6.50); %Basophils 0.5 % (0.0-1.0); %Eosinophils 0.7 % (0.0-10.0); %Lymphocytes 23.4 % (21.0-51.0); %Monocytes 5.6 % (0.0-10.0); %Neutrophils 69.8 % (42.0-75.0); Hemoglobin 15.4 g/dL (12.0-16.0); Mean Corpuscular HGB CONC 34.3 g/dL (32.0-36.0); Mean Corpuscular Hemoglobin 32.5 pg (27.0-31.0); Mean Corpuscular Volume 94.7 fL (78.0-98.0); Mean Platelet Volume 7.8 fL (7.4-10.4); Platelet Count 222 thou/uL (130-400); RBC Distribution Width 11.9 % (11.5-14.5); Red Blood Cell (RBC) Count 4.75 mill/uL (4.20-5.40)
[2020-04-13 20:35] LABS: ALT (SGPT) 57 U/L (8-55); AST (SGOT) 28 U/L (5-34); Albumin 4.5 g/dL (3.5-5.0); Alkaline Phosphatase 164 U/L (40-110); Anion Gap 17 mmol/L (10-20); BUN (Urea Nitrogen) 12 mg/dL (7.0-18.7); Bilirubin, Total 0.4 mg/dL (0.2-1.2); CK (CPK) 16 U/L (29-168); Calc. Creatinine Clearance 0 mL/min (70-130); Calcium 9.3 mg/dL (7.8-10.44); Carbon Dioxide 21 mmol/L (22-29); Chloride 106 mmol/L (98-107); Globulin 2.9 g/dL (2.4-3.5); Glucose 97 mg/dL (70-105); Lipase 19 U/L (8-78); Potassium 4.2 mmol/L (3.5-5.1); Protein, Total 7.4 g/dL (6.0-8.3); Sodium 140 mmol/L (136-145)
[2020-04-13 20:39] LABS: BHCG - Serum Negative (NEGATIVE); Pregs Control Background? CLEAR/WHITE (CLR/WHITE); Pregs Control Bar Appear? YES (CONTROL BAR)
[2020-04-13] MEDS ORDERED: Acetaminophen 500 MG TAB ONE (23:01)
[2020-04-13 23:07] LABS: Bacteria/HPF 1+ HPF (None Seen); Bilirubin Negative (Negative); Blood, Urine Negative (Negative); Clarity Clear (Clear); Glucose, Urine (Dipstick) Normal (Negative); Ketone, Urine Negative (Negative); Leukocyte 25 Leu/uL (Negative); Nitrite Negative (Negative); Protein, Urine (Dipstick) Negative (Neg-Trace); RBC/HPF 0-3 HPF (0-3); Specific Gravity, Urine 1.015 (1.002-1.036); Squamous Epithelial 0-3 HPF (0-3); Urobilinogen Normal mg/dL (Less than 2)
== END 2020-04-13 23:28 | disposition home or self-care (01) ==
LOC: ERS 19:11
DX: I49.8 Other specified cardiac arrhythmias (principal); E03.9 Hypothyroidism, unspecified; F17.210 Nicotine dependence, cigarettes, uncomplicated
CPT/HCPCS: 36415; 36416; 71045; 80053; 81003; 81015; 82550; 83690; 83880; 84443; 84484; 84703; 85025; 85379; 93005

== ENCOUNTER 2020-06-29 19:38 | Emergency (ER) | payer BC ==
[2020-06-29 20:25] LABS: #Basophils 0.1 thou/uL (0.0-0.2); #Eosinphils 0.1 thou/uL (0.0-0.7); #Lymphocytes 1.3 thou/uL (1.20-3.40); #Monocytes 0.3 thou/uL (0.11-0.59); #Neutrophils 3.6 thou/uL (1.40-6.50); %Lymphocytes 25.2 % (21.0-51.0); %Monocytes 4.8 % (0.0-10.0); Mean Corpuscular HGB CONC 34.1 g/dL (32.0-36.0); Mean Corpuscular Hemoglobin 32.7 pg (27.0-31.0); Mean Corpuscular Volume 95.7 fL (78.0-98.0); Mean Platelet Volume 7.7 fL (7.4-10.4); Platelet Count 189 thou/uL (130-400); RBC Distribution Width 11.1 % (11.5-14.5); Red Blood Cell (RBC) Count 4.59 mill/uL (4.20-5.40); White Blood Cell (WBC) Count 5.3 thou/uL (4.8-10.8)
[2020-06-29 20:45] LABS: ALT (SGPT) 54 U/L (8-55); AST (SGOT) 26 U/L (5-34); Albumin 4.4 g/dL (3.5-5.0); Alkaline Phosphatase 112 U/L (40-110); Anion Gap 10 mmol/L (10-20); BUN (Urea Nitrogen) 10 mg/dL (7.0-18.7); Bilirubin, Total 0.4 mg/dL (0.2-1.2); Calc. Creatinine Clearance 0 mL/min (70-130); Calcium 9.3 mg/dL (7.8-10.44); Carbon Dioxide 28 mmol/L (22-29); Chloride 106 mmol/L (98-107); Globulin 2.8 g/dL (2.4-3.5); Glucose 98 mg/dL (70-105); Potassium 3.7 mmol/L (3.5-5.1); Protein, Total 7.2 g/dL (6.0-8.3); Sodium 140 mmol/L (136-145)
[2020-06-29 21:03] LABS: Bilirubin Negative (Negative); Blood, Urine Negative (Negative); Clarity Clear (Clear); Glucose, Urine (Dipstick) Normal (Negative); Ketone, Urine Negative (Negative); Leukocyte Negative Leu/uL (Negative); Nitrite Negative (Negative); Protein, Urine (Dipstick) Negative (Neg-Trace); Specific Gravity, Urine 1.015 (1.002-1.036); Urobilinogen Normal mg/dL (Less than 2); pH, Urine 6.5 (5.0-9.0)
[2020-06-29 21:03] LABS: Free T4 (Free Thyroxine) 1.01 ng/dL (0.70-1.48); Thyroid Stimulating Hormone 1.9816 uIU/mL (0.35-4.94)
[2020-06-29 21:04] LABS: Pregnancy Test - Urine (BHCG) Negative (Negative); Pregu Control Background? CLEAR/WHITE (CLR/WHITE); Pregu Control Bar Appear? YES (CONTROL BAR); Specific Gravity 1.015 (1.002-1.036)
[2020-06-29] MEDS ORDERED: Ibuprofen 200 MG TAB ONE (21:56)
== END 2020-06-29 22:10 | disposition home or self-care (01) ==
LOC: ERS 19:38
DX: E16.2 Hypoglycemia, unspecified (principal); E03.9 Hypothyroidism, unspecified; G43.909 Migraine, unspecified, not intractable, without status migrainosus; F17.210 Nicotine dependence, cigarettes, uncomplicated
CPT/HCPCS: 36415; 36416; 80053; 81003; 81025; 84439; 84443; 84481; 85025; 99284

== ENCOUNTER 2022-01-19 17:03 | Emergency (ER) | payer BC ==
[2022-01-19] MEDS ORDERED: Bacitracin 1 PK ONE (19:00)
[2022-01-19] MEDS ORDERED: Boostrix 0.5 ML (Tdap) VIAL (>/=7 yrs of age) ONE (19:01)
== END 2022-01-19 19:17 | disposition home or self-care (01) ==
LOC: ERS 17:03
DX: S92.421A Displaced fracture of distal phalanx of right great toe, initial encounter for closed fracture (principal); G43.909 Migraine, unspecified, not intractable, without status migrainosus; E03.9 Hypothyroidism, unspecified; W22.8XXA Striking against or struck by other objects, initial encounter; Z79.899 Other long term (current) drug therapy; Z23 Encounter for immunization
CPT/HCPCS: 90715

== ENCOUNTER 2022-05-31 13:54 | Emergency (ER) | payer BC ==
[2022-05-31 14:52] LABS: #Monocytes 0.3 thou/uL (0.11-0.59); %Basophils 0.3 % (0.0-1.0); %Eosinophils 0.6 % (0.0-10.0); %Lymphocytes 12.9 % (21.0-51.0); %Monocytes 4.2 % (0.0-10.0); Hemoglobin 15.7 g/dL (12.0-16.0); Mean Corpuscular HGB CONC 34.5 g/dL (32.0-36.0); Mean Corpuscular Hemoglobin 34.2 pg (27.0-31.0); Mean Corpuscular Volume 99.3 fl (78.0-98.0); Mean Platelet Volume 8.4 fL (7.4-10.4); Platelet Count 199 10x3/uL (130-400); RBC Distribution Width 11.3 % (11.5-14.5); White Blood Cell (WBC) Count 7.4 10x3/uL (4.8-10.8)
[2022-05-31 15:02] LABS: BHCG - Serum Negative (NEGATIVE); Pregs Control Background? CLEAR/WHITE (CLR/WHITE); Pregs Control Bar Appear? YES (CONTROL BAR)
[2022-05-31 15:13] LABS: ALT (SGPT) 21 U/L (8-55); AST (SGOT) 18 U/L (5-34); Albumin 4.5 g/dL (3.5-5.0); Alkaline Phosphatase 74 U/L (40-110); Anion Gap 12 mmol/L (10-20); BUN (Urea Nitrogen) 12 mg/dL (7.0-18.7); Bilirubin, Total 0.5 mg/dL (0.2-1.2); Calc. Creatinine Clearance 0 mL/min (70-130); Calcium 9.2 mg/dL (7.8-10.44); Carbon Dioxide 24 mmol/L (22-29); Chloride 107 mmol/L (98-107); Estimated GFR 99; Globulin 2.7 g/dL (2.4-3.5); Glucose 113 mg/dL (70-105); Lipase 13 U/L (8-78); Potassium 3.9 mmol/L (3.5-5.1); Protein, Total 7.2 g/dL (6.0-8.3); Sodium 139 mmol/L (136-145)
== END 2022-05-31 18:02 | disposition home or self-care (01) ==
LOC: ERS 13:54
DX: K92.1 Melena (principal); E03.9 Hypothyroidism, unspecified
CPT/HCPCS: 36415; 80053; 83690; 84703; 85025; 93005

== ENCOUNTER 2025-02-22 16:26 | Emergency (ER) | payer BC ==
[2025-02-22 17:02] LABS: #Basophils 0.03 10x3/uL (0.0-0.2); #Eosinophils Less than 0.03 10x3/uL (0.0-0.7); #Monocytes 0.27 10x3/uL (0.11-0.59); #Neutrophils 6.17 10x3/uL (1.40-6.50); %Basophils 0.4 % (0.0-1.0); %Eosinophils 0.1 % (0.0-10.0); %Lymphocytes 14.4 % (21.0-51.0); %Monocytes 3.6 % (0.0-10.0); %Neutrophils 81.2 % (42.0-75.0); Hematocrit 47.1 % (36.0-47.0); Hemoglobin 15.3 g/dL (12.0-16.0); Mean Corpuscular Hemoglobin 31.0 pg (27.0-31.0); Mean Corpuscular Volume 95.3 fL (78.0-98.0); Platelet Count 239 10x3/uL (130-400); Red Blood Cell (RBC) Count 4.94 mill/uL (4.20-5.40); White Blood Cell (WBC) Count 7.59 10x3/uL (4.8-10.8)
[2025-02-22] MEDS ORDERED: Acetaminophen 500 MG TAB ONE (17:05)
[2025-02-22 17:18] LABS: ALT (SGPT) 23 U/L (Less than 34); AST (SGOT) 21 U/L (11-34); Albumin 4.6 g/dL (3.1-4.5); Alkaline Phosphatase 63 U/L (40-110); Anion Gap 14 mmol/L (10-20); BUN (Urea Nitrogen) 14 mg/dL (7.0-18.7); Bilirubin, Total 0.4 mg/dL (0.3-1.2); Calc. Creatinine Clearance 0 mL/min (70-130); Calcium 9.5 mg/dL (7.8-10.44); Carbon Dioxide 24 mmol/L (22-29); Chloride 106 mmol/L (98-107); Globulin 2.9 g/dL (2.4-3.5); Glucose 105 mg/dL (70-105); Lipase 22 U/L (8-78); Potassium 3.9 mmol/L (3.5-5.1); Sodium 140 mmol/L (136-145)
[2025-02-22] MEDS ORDERED: Ondansetron PF 4 MG/2 ML Vial ONE (17:29)
[2025-02-22] MEDS ORDERED: diphenhydrAMINE 50 MG/ML VIAL ONE (18:11)
[2025-02-22] MEDS ORDERED: Famotidine/PF 20 mg/2ml Vial ONE (18:12)
[2025-02-22 18:27] LABS: Pregnancy Test - Urine (BHCG) Negative (Negative); Pregu Control Background? CLEAR/WHITE (CLR/WHITE); Pregu Control Bar Appear? YES (CONTROL BAR)
[2025-02-22 18:30] LABS: Bacteria/HPF None Seen HPF (None Seen); CAUTI Indications for Culture Pelvic or flank pain; Glucose, Urine (Dipstick) Normal (Negative); Leukocyte Negative Leu/uL (Negative); Protein, Urine (Dipstick) Negative (Neg-Trace); RBC/HPF 0-3 HPF (0-3); Specific Gravity, Urine 1.015 (1.002-1.036); WBC/HPF 0-3 HPF (0-3)
[2025-02-22 18:32] LABS: Urine Culture Reflex No No
[2025-02-22 18:35] LABS: Cocaine Metabolite Screen Negative (Negative); THC/Cannabinoid Screen Negative (Negative); Tricyclic Screen Negative (Negative)
== END 2025-02-22 20:47 | disposition home or self-care (01) ==
LOC: ERS 16:26
DX: R10.9 Unspecified abdominal pain (principal); R21 Rash and other nonspecific skin eruption
CPT/HCPCS: 36415; 36416; 71250; 74177; 80053; 80306; 81001; 81025; 83605; 83690; 83880; 84443; 84484; 85025; 85379; 87040; 87428; 93005; 96374; J1200; J1308; J2405; J2919